=== PATIENT | female | born 1960 | race Caucasian/White ===

== ENCOUNTER 2019-03-06 07:38 | Day surgery (SDC) | payer BC, SELFPAY ==
--- NOTE | 2019-03-06 06:52 | COLE_ITS ---
Date of service: 03/06/19 Time of Service: 08:24 Colonoscopy Report Date of procedure: 03/06/19 Pre-op diagnosis general: Hx of colon polyps and family history Post-op diagnosis procedure note: other (Colorectal polyp, internal hemorrhoids and FHx of colon cancer) Procedure: Colonoscopy with polypectomy Surgeon: Carola Bryant Anesthesia proc note operative: other (General/ ASA 2/Dash Olivera, J CARLOS) Estimated blood loss (mL): 2 Pathology: other (ascending colon polyp) Complications: None Disposition: same day Indications: Mrs. Deras is a pleasant 4-year-old female who was seen in the office for follow-up colonoscopy. She has a history of polyps herself. No family history of colon cancer. Risks, benefits and complications have been reviewed. Complications include but are not limited to bleeding, pain, perf oration, missed small lesion/polyp, sore throat, aspiration and adverse reaction to the medications. Questions were entertained and answered to their satisfaction and they wished to proceed. No guarantees were given or implied. Prep: Miralax/Dulcolax Procedure Start Time: :24 Procedure End Time: 08:43 Retraction Time: 13 minutes Findings: One small sessile polyp in the ascending colon Grade 1 internal hemorrhoids Procedure Description: After informed consent was obtained the patient was taken to the procedure room and placed in a left decubitous position. Monitors were applied and a time out was done. The patients name, date of , procedure, allergies to medications and metal in their body was reviewed. The patient was then sedated. Once sedated and comfortable a rectal exam was done. External exam was normal. Internal exam revealed a normal sphincter tone and no palpable masses. The scope was then introduced and retro-flexed. Grade 1 internal hemorrhoids were identified. There were no masses or polyps on retroflexion. The scope was then advanced to the cecum without difficulty. The TI and appendiceal orifice were identified. The prep was adequate. The scope was then slowly retracted over 13 minutes back into the rectum. Polyps were removed with cold forceps in the ascending colon. The scope was removed and the patient was woken up and taken back to Same day surgery in stable condition. The patient tolerated the procedure well and there were no immediate complications. Follow up: The patient should follow up in 3-5 years unless they develop changes in bowel habits or other new gastrointestinal complaints.
--- NOTE | 2019-03-06 06:54 | W.PM.DSUDISC ---
Discharge Plan Disposition Patient Disposition: HOME Condition: Good Discharge Details Reason For Visit: Colonoscopy/ Hx of polyps Attending Provider: Carola Bryant Primary Care Provider: Pedro Pablo Escoto Home Meds and New Rx's Prescriptions: Discontinued polyethylene glycol 3350 17 gram powder in packet 255 g PO DAILY Qty: 15 RF: 0 Discharge Instructions Instructions: Colonoscopy (DC), Colorectal Polyps (DC), Hemorrhoids (DC) Additional Instructions: Findings: 1 small polyp internal hemorrhoids Follow up: 3-5 years Please call if you develop: fevers >101.5 Nausea or Vomiting Abdominal pain that is not transient DAY SURGERY UNIT POST ENDOSCOPY INSTRUCTIONS 1. Because there will be medication in your system for the next 24 hours, you may feel a little sleepy. Your coordination will be affected. Therefore: a. Do not drive or operate dangerous equipment for 24 hours. b. Do not drink alcohol beverages for 24 hours (not even beer). c. Plan to go home and rest for the day. 2. Generally there are no restrictions on your activity after a day or so has gone by, but you may feel a bit fatigued for a few days. 3 After you arrive home you may have a light meal and return to a normal diet as you can tolerate it without feeling sick to your stomach. 4. After surgery, you may feel pain or discomfort. This should be only transient, but if it persists please contact your doctor. 5. If there are any questions regarding the findings of your procedure, please feel free to contact your doctor. 6. If you are unable to contact your doctor with a problem, contact the hospital at [phone]. 7. Continue all your regular medications unless directed otherwise. I understand the above instructions and have no questions. Signature of Patient or Responsible Adult Escort Date/Time Name of Responsible Adult Escort Signature of Nurse Date/Time Activity:: Activity as Tolerated Diet:: As Tolerated Discharge Orders Discharge Orders: Discharge Order (Routine); Ordered 03/06/19 Ordered By: Carola Bryant DS: Diagnosis Discharge Diagnosis (1) Colonoscopy - IV Sedation: Status: None (2) Colorectal polyps: Status: Acute (3) Internal hemorrhoids: Status: Acute
[2019-03-06 07:47] VITALS: BP 95/65; PULSE 75; RESP 16; TEMP 36.5; O2SAT 100
[2019-03-06] MEDS: Lactated Ringers 1,000 ML 80 ML IV (08:23)
--- NOTE | 2019-03-06 08:33 | BOWEL_PTH ---
PATIENT: Effie Deras LOC: [facility] U#:[id number] AGE/SX: 58/F ROOM: RE03/06/[address]: Carola Bryant MD : 1960 BED: DIS: 03/06/2019 SPEC #: [id number] RECD: 03/06/19 11:53 STATUS: LUIS CARLOS REQ #: [id number] DAINA: 03/06/19 08:[address]: Carola Braynt DEPT: Surgical Specimen RECD BY: Katie Brown ENTERED: 03/06/19 11:54 SP TYPE: Bowel OTHR DR: Pedro Pablo Escoto Tissues: 1 - BIOPSY BOWEL Procedures: GROSS AND MICRO LEVEL 4 Comments: [id number]
[2019-03-06 09:45] VITALS: BP 96/58; PULSE 72; RESP 16; TEMP 36.3; O2SAT 97
== END 2019-03-06 09:55 | disposition home or self-care (01) ==
LOC: SUR 07:40
PROVIDERS: PCP Internal Medicine; Visit Provider Surgery
PROC: 0DJD8ZZ Inspection of Lower Intestinal Tract, Via Natural or Artificial Opening Endoscopic (ICD-10-PCS; CPT 45378; principal; 2019-03-06 09:30)
DX: Z12.11 Encounter for screening for malignant neoplasm of colon (principal); Z86.010 Personal history of colon polyps; Z80.0 Family history of malignant neoplasm of digestive organs; D12.2 Benign neoplasm of ascending colon; K64.0 First degree hemorrhoids
CPT/HCPCS: 45380; 88305

== ENCOUNTER 2021-05-13 15:39 | Outpatient (REF) | payer BC, SELFPAY ==
[2021-05-13 15:29] LABS: HCT 41.9 % (36.0-46.0); HGB 13.4 g/dL (11.2-15.7); MCH 29.6 pg (27.0-33.0); MCV 92.7 fL (80-95); MPV 10.6 fL (8.0-11.0); Platelet Count 267 10^3/uL (130-400); RBC 4.52 10^6/uL (3.93-5.22); RDW 12.7 % (11.7-14.6); RDW-SD 43.6 fL; WBC 6.68 10^3/uL (4.4-10.8)
[2021-05-13 16:13] LABS: Anion Gap 10.2 mmol/L (3-11); BUN 21 mg/dL (7-18); CO2 27.8 mmol/L (21.0-32.0); CREATININE 0.9 mg/dL (0.55-1.02); Calcium 9.3 mg/dL (8.5-10.1); Calculated LDL 150 mg/dL (<100); Chloride 104 mmol/L (98-107); Cholesterol 224 mg/dL (<200); Glucose 91 mg/dL (74-106); HDL Cholesterol 60 mg/dL (40-60); Potassium 4.6 mmol/L (3.5-5.1); Sodium 142 mmol/L (136-145); Triglyceride 74 mg/dL (<150)
[2021-05-14 11:12] LABS: Hepatitis C Ab w Rflx HCV PCR Negative (Negative)
[2021-05-14 12:43] LABS: HIV-1/2 Ag & Ab Screen Negative (Negative)
== END 2021-05-13 15:40 | disposition home or self-care (01) ==
LOC: NCHCN 15:39
PROVIDERS: PCP Internal Medicine; Visit Provider Nurse Practitioner Family
DX: Z00.00 Encounter for general adult medical examination without abnormal findings (principal); Z11.4 Encounter for screening for human immunodeficiency virus [HIV]; Z11.59 Encounter for screening for other viral diseases
CPT/HCPCS: 80048; 80061; 85027; 86803; 87389

== ENCOUNTER 2022-10-12 02:14 | Outpatient (CLI) | payer BC, SELFPAY ==
--- NOTE | 2022-10-12 | DI.MAMMO_ITS ---
Exam(s) US BREAST LT COMPLETE MG MAMMO DIAGNOSTIC UNI EXAM: MG MAMMO DIAGNOSTIC UNI-LEFT AND COMPLETE LEFT BREAST ULTRASOUND CLINICAL HISTORY: DIFFUSE CYSTIC MASTOPATHY OF LT BREAST, FAM HX. TECHNIQUE: Unilateral LEFT BREAST spot mammographic images were obtained with 3D tomosynthesis techn ique and utilizing computer aided detection (CAD). Also performed complete left breast ultrasound including all 4 quadrants, the retroareolar region, an d the left axilla. COMPARISON: Prior outside mammograms were reviewed. FINDINGS: DIAGNOSTIC LEFT BREAST MAMMOGRAM: The fibroglandular tissue pattern is very dense, this decreasing the sensitivity mammogram for findin g hidden underlying lesions. There are no obvious spiculated masses nor malignant-appearing microcalcification groups in the left breast. Few benign microcalcifications are noted. There is no significant architectural distortion or skin thickening-traction. COMPLETE LEFT BREAST ULTRASOUND: At the 1 o'clock position there is a 9 x 6 mm wider than taller finding which upon real-time multi pl aner imaging (both radial and anti radial cine sequences were performed) has more the appearance of a symmetric benign tissue than a fibroadenoma. There are no other focal findings in all 4 quadrants of the left breast. Scanning of the left axilla is negative for adenopathy. IMPRESSION: 1. Dense fibroglandular tissue of the left breast. No mammographic evidence of malignancy. 2. Finding at the 1 o'clock position left breast on ultrasound which is most probably asymmetric fibr oglandular tissue as opposed to a true nodule. 3. Appropriate follow-up is repeat left breast ultrasound in 3 months, this to ensure stability of fi nding described above at the 1 o'clock position. At that time I recommend that she undergo bilateral breast ultrasound, given the density of her fibroglandular tissue on mammography. Findings are recommendations were discussed by myself with the patient today. The patient was informed of the findings and follow-up recommendations prior to leaving the [facility] today. BI-RADS Category 3 - 3 month - Probably Benign Finding: Recommend follow-up ULTRASOUND in 3 months Breast Density - Category D - Extremely dense Breast density Category C or D implies that the patient has dense breast tissue. Dense breast tissue can make it harder to find cancer on a mammogram. Dense breast tissue is also associated with an incr eased risk of breast cancer. This information about the result of the mammogram report was provided to the patient to raise their awareness. Use this report when you speak with the patient about their risks for breast cancer, which includes their family history. At that time, you may recommend additional screening tests (Ultrasoun d or MRI) as these tests may add significant information. A negative radiographic report should not delay biopsy if a dominant or clinically suspicious mass is present. Up to ten percent of cancers are not identified on mammography. A negative report may reinforce clinical impression. Adenosis and dense breasts may obscure an underlying neoplasm. False positive reports average 6 to 10%. Patient will receive a letter notifying them of these results.
== END 2022-10-12 02:34 ==
LOC: DI 02:17
PROVIDERS: PCP Internal Medicine; Visit Provider Nurse Practitioner Women's Health
DX: Z12.31 Encounter for screening mammogram for malignant neoplasm of breast (principal); R92.2 Inconclusive mammogram
CPT/HCPCS: 76642; 77061; 77065; G0279

== ENCOUNTER → 2023-01-15 00:06 | Outpatient (CLI) | payer BC, SELFPAY ==
--- NOTE | 2023-01-15 | DI.US_ITS ---
Exam(s) MG MAMMO DIAGNOSTIC UNI US BREAST LT LIMITED EXAM: MG MAMMO DIAGNOSTIC UNI and U/S breast LT limited CLINICAL HISTORY: INCONCLUSIVE MAMMO R92.2 MASTOPATHY N60.12 FAM HX BREAST CANCER Z80.3. TECHNIQUE: Craniocaudal and mediolateral oblique Full Field Digital Mammography views of the left br east with Computer Aided Diagnosis followed by Tomosynthesis and left breast ultrasound. COMPARISON: Comparison is made with prior examinations. FINDINGS: Mammography/Tomosynthesis: Masses/Architectural Distortion: None seen. Microcalcifictions: No suspicious pleomorphic-type are seen. Skin Thickening/Nipple Retraction: None. Limited left breast US: Echotexture: The hypoechoic breast tissue at the 1 o'clock position of the left breast 2 cm from the nipple is unchanged. This has the appearance of asymmetric benign breast tissue but a fibroadenoma c annot be entirely excluded. Shadowing: No suspicious foci. Cyst: None. Solid lesions: None seen. Ductal dilation: None. IMPRESSION: 1. Stable appearance of the breast tissue at the 1 o'clock. 2. A six-month follow-up mammogram and ultrasound is requested for re-evaluation. 3. The findings were discussed with the patient on the date of the examination. BI-RADS Category 3 - 6 month - Probably Benign Finding: Recommend follow-up imaging in 6 months Breast Density - Category D - Extremely dense Breast density Category C or D implies that the patient has dense breast tissue. Dense breast tissue can make it harder to find cancer on a mammogram. Dense breast tissue is also associated with an incr eased risk of breast cancer. This information about the result of the mammogram report was provided to the patient to raise their awareness. Use this report when you speak with the patient about their risks for breast cancer, which includes their family history. At that time, you may recommend additional screening tests (Ultrasoun d or MRI) as these tests may add significant information. A negative radiographic report should not delay biopsy if a dominant or clinically suspicious mass is present. Up to ten percent of cancers are not identified on mammography. A negative report may reinforce clinical impression. Adenosis and dense breasts may obscure an underlying neoplasm. False positive reports average 6 to 10%. Patient will receive a letter notifying them of these results.
== END ==
PROVIDERS: PCP Internal Medicine; Visit Provider Nurse Practitioner Women's Health
DX: Z12.31 Encounter for screening mammogram for malignant neoplasm of breast (principal); N60.12 Diffuse cystic mastopathy of left breast; R92.2 Inconclusive mammogram; Z80.3 Family history of malignant neoplasm of breast
CPT/HCPCS: 76642; 77061; 77065; G0279

== ENCOUNTER 2023-04-13 08:03 | Outpatient (REF) | payer BC, SELFPAY ==
--- OUTSIDE RECORDS SUMMARY | 2023-04-13 08:06 | XMS_ITS | Continuity of Care Document ---
Author Name Unknown Organization [facility] Address [address] [place] [address] Care Team Providers Care Due Diligence Coordinator Name Role Phone YEISON VANEGAS Primary Care Physician Encounter [facility] NBR [id number] Date(s): 07/22/22 - 07/22/22 [facility] [address] [place] [address]- [place] Encounter Diagnosis Encounter for screening mammogram for malignant neoplasm of breast(Final) - Mammographic calcification found on diagnostic imaging of breast(Final) - Discharge Disposition: Home or Self Care Attending Physician: YEISON VANEGAS Admitting Physician: YEISON VANEGAS Referring Physician: YEISON VANEGAS Results Radiology Reports * Exam Date Time Procedure Performing Provider Status 07/22/22 6:38 AM MG Mammo Screening Bilateral DomainUse r, Generated; Auth (Verified) Notes: (MG Mammo Screening Bilateral) Reason For Exam: SCREENING MG Mammo Screening Bilateral EXAM DESCRIPTION: MG Mammo Screening Bilateral 07/22/2022 INDICATION: SCREENING COMPARISON: Prior studies most recently dated 07/22/2021 and 07/09/2020 BREAST DENSITY: The breasts are heterogeneously dense which may obscure small masses. FINDINGS: MLO and CC views were performed with digital breast tomosynthesis. Images were reviewed using computer aided detection. No asymmetry, architectural distortion or suspicious grouping of calcifications to suggest malignancy in either breast. Scattered benign-type calcifications bilaterally which were seen previously. ASSESSMENT: No mammographic evidence of malignancy. Benign findings. BI-RADS category 2. RECOMMENDATION: Screening mammography in 1 year JOB #: [id number] Final Signed by: Matthias Marin MD Signed (Electronic Signature): 07/22/2022 8:53 am MG Breast - bilateral Screening * Matthias Marin MD: VERIFY, VERIFY Event Display: Report EXAM DESCRIPTION: MG Mammo Screening Bilateral 07/22/2022 INDICATION: SCREENING COMPARISON: Prior studies most recently dated 07/22/2021 and 07/09/2020 BREAST DENSITY: The breasts are heterogeneously dense which may obscure small masses. FINDINGS: MLO and CC views were performed with digital breast tomosynthesis. Images were reviewed using computer aided detection. No asymmetry, architectural distortion or suspicious grouping of calcifications to suggest malignancy in either breast. Scattered benign-type calcifications bilaterally which were seen previously. ASSESSMENT: No mammographic evidence of malignancy. Benign findings. BI-RADS category 2. RECOMMENDATION: Screening mammography in 1 year JOB #: [id number] Final Signed by: Matthias Marin MD Signed (Electronic Signature): 07/22/2022 8:53 am Patient Care team information Care Team Personnel Name: YEISON VANEGAS Position: No Access Member Role: Primary Care Physician Address: Address: [address] [address]
--- OUTSIDE RECORDS SUMMARY | 2023-04-13 08:06 | XMS_ITS | CCD ---
Author Name Unknown Address [address] [place] [address] [id number] Organization Unknown Address [address] [place] [address] [id number] Care Team Providers Care Sizing Sponger Name Role Phone SHIRA MOONEY Attending Physician [phone] Vital Signs Unknown or Not Available. Allergies Unknown or Not Available. Procedures Unknown or Not Available. History of Immunizations Unknown or Not Available. Problems Unknown or Not Available. Results Unknown or Not Available. Active Medications Unknown or Not Available. Medications Administered During Visit Unknown or Not Available. Encounters Encounter Diagnosis Diagnosis Code Start Date Active immunization [id number] 02/16/2023 Social History Smoking Status Code Start Date End Date Unknown if ever smoked [id number] Patient Decision Aids Unknown or Not Available. Discharge Instructions You were admitted to [facility] on 02/16/2023 11:45 with a principal diagnosis of Encounter for immunization You were discharged from [facility] on 02/16/2023 11:45 Should you have any questions prior to discharge, please contact a member of your healthcare team. If you have left the hospital and have any questions, please contact your primary care physician. Chief Complaint and Reason For Visit Unknown or Not Available. Function Status Unknown or Not Available. Plan of Care Unknown or Not Available. Referral/Transition of Care Unknown or Not Available.
--- OUTSIDE RECORDS SUMMARY | 2023-04-13 08:06 | XMS_ITS | Patient Health Record ---
Author Name Unknown [facility] Address [address] [place] [address] Care Team Providers Care Armor Reconnaissance Vehicle Driver Name Role Phone FRANDY FREDERICK MD Primary Care Provider Unavail able Edy Abdi Unavailable [phone] ALLERGIES Allergen (clinical drug ingredient) Drug/Non Drug Allergy documented on EMR Reaction Allergy Type Onset Date Status acetaminophen tylenol (uncoded) cold symptoms Allergy Active REASON FOR REFERRAL No Information MEDICATIONS Medication SIG (Take, Route, Frequency, Duration) Notes Start Date End Date Status HAIR, SKIN & NAILS 5 mg 1 cap(s) orally once a day STOP*please review for potential _update for e-prescription and drug interaction check* Not-Taking SOCIAL HISTORY Tobacco Use: Social History Observation Description Date Details (start date - stop date) Never Smoker NA - NA Sex Assigned At : Social History Observation Description Sex Assigned At Unknown SMOKING Question Answer Notes Are you a: nonsmoker DRUG SCREENING Question Answer Notes Have you used drugs other th an those for medical reasons in the past 12 months? No PROBLEMS Problem Type ICD Code Onset Dates Problem Status W/U Status Risk SNOMED Code Notes Problem ROUTINE QUILL LAYER EXAMINATION (V72.31) Active confirmed Routine gynecologic examination done (14970733288668 ) Problem BREAST MASS (611.72) Active confirmed Breast mass (44129694) Problem Atrophic vaginitis (N95.2) Active confirmed [id number] PLAN OF TREATMENT Future Test Test Name Order Date HEMOGLOBIN A1C 06/28/2018 LIPID W/ CALCULATED LDL 06/28/2018 TSH 06/28/2018 Insurance Providers Payer Name Payer Address Payer Phone Subscriber Number Group Number Insured Name Patient Relationship to Insured Coverage Start Date Coverage End Date [employer] [place] [address] [place], [place] [id number] [phone] [id number] Self - patient is the insured [place] [address] [address] Self - patient is the insured MEDICAL (GENERAL) HISTORY Medical History History ICD Code mother diagnosised with breast cancer 52 yrs old. Surgical History Surgery Date(Month/Year) breast sugery- dr. Bailey 10/2007 breast surgery- Dr. Mahoney in [place]. 10/2008 T&A colonoscopy 02/21/2010 breast cyst aspiration colonoscopy with flat polyp, repeat in [place] yr.Dr. Wyman. 08/08/2012 Colonoscopy at [facility] 2013, 2018 Hospitalization History Reason Date(Month/Year) childbirth
[2023-04-13 15:23] LABS: HCT 40.7 % (36.0-46.0); HGB 13.3 g/dL (11.2-15.7); MCH 29.6 pg (27.0-33.0); MCHC 32.7 % (32.0-36.0); MCV 90 fL (80-95); MPV 10.3 fL (8.0-11.0); Platelet Count 278 10^3/uL (130-400); RDW 12.9 % (11.7-14.6); RDW-SD 42.2 fL; WBC 5.11 10^3/uL (4.4-10.8)
[2023-04-13 15:42] LABS: ALT 22 U/L (14-59); AST 17 U/L (15-37); Alkaline Phosphatase 118 U/L (46-116); Anion Gap 8.5 mmol/L (3-11); BUN 23 mg/dL (7-18); Bilirubin, Total 0.5 mg/dL (0.2-1.0); CO2 28.5 mmol/L (21.0-32.0); CREATININE 0.9 mg/dL (0.55-1.02); Calcium 9.3 mg/dL (8.5-10.1); Calculated LDL 137 mg/dL (<100); Chloride 106 mmol/L (98-107); Cholesterol 208 mg/dL (<200); Estimated GFR 70.95 (mL/min/1.73m2); Glucose 95 mg/dL (74-106); HDL Cholesterol 57 mg/dL (40-60); Potassium 4.5 mmol/L (3.5-5.1); Sodium 143 mmol/L (136-145); Total Protein 6.9 g/dL (6.4-8.2); Triglyceride 71 mg/dL (<150)
== END 2023-04-13 08:04 | disposition home or self-care (01) ==
LOC: NCHCN 08:03
PROVIDERS: PCP Internal Medicine; Visit Provider Nurse Practitioner Family
DX: Z00.00 Encounter for general adult medical examination without abnormal findings (principal); Z13.220 Encounter for screening for lipoid disorders; Z13.0 Encounter for screening for diseases of the blood and blood-forming organs and certain disorders involving the immune mechanism; Z13.228 Encounter for screening for other metabolic disorders
CPT/HCPCS: 80053; 80061; 85027

== ENCOUNTER → 2023-07-21 02:49 | Outpatient (CLI) | payer BC, SELFPAY ==
--- NOTE | 2023-07-21 | DI.US_ITS ---
Exam(s) MG MAMMO DIAGNOSTIC BI US BREAST LT LIMITED EXAM: MG MAMMO DIAGNOSTIC BI, left breast ultrasound CLINICAL HISTORY: DIAGNOSTIC, LT BREAST ASYMMETRIC TISSUE. COMPARISON: MG MG MAMMOGRAPHY BILATERAL SCREENING from 07/09/2020 MG MG MAMMOGRAPHY BILATERAL SCREENING from 07/22/2021 MG MG MAMMOGRAPHY BILATERAL SCREENING from 07/22/2022 MG MG MAMMO DIAGNOSTIC UNI from 10/12/2022 US US BREAST LT COMPLETE from 10/12/2022 MG MG MAMMO DIAGNOSTIC UNI from 01/15/2023 US US BREAST LT LIMITED from 01/15/2023 US US BREAST LT LIMITED from 07/21/2023 TECHNIQUE: Craniocaudal and mediolateral oblique Full Field Digital Mammography views of both breast s with Computer Aided Diagnosis followed by Tomosynthesis and left breast ultrasound. FINDINGS: Mammography/Tomosynthesis: Masses/Architectural Distortion: None seen. Microcalcifications: No suspicious pleomorphic-type are seen. Skin Thickening/Nipple Retraction: None. Left breast US: Echotexture: Normal appearance of the glandular tissue. Shadowing: No suspicious foci. Cyst: None. Solid lesions: Stable size and appearance of previously noted circumscribed hypoechoic ovoid lesion m easuring 6 x 9 by 12 millimeters. Ductal dilation: None. IMPRESSION: 1. No evidence of malignancy is noted. 2. Unless there is more urgent need, follow-up screening mammography is recommended, as per [employer] guidelines. BI-RADS Category 2 - Benign Findings Breast Density - Category D - Extremely dense Breast density category C or D implies that the patient has dense breast tissue. Dense breast tissue is very common and is not abnormal but dense breast tissue can make it harder to find cancer on a ma mmogram. Also, dense breast tissue may increase their breast cancer risk. This information about the result of the mammogram report was provided to the patient to raise their awareness. Use this report when you speak with the patient about their risks for breast cancer, which includes their family hist ory. At that time, you may recommend for more screening tests (Ultrasound or MRI) as they might be us eful based on their risk. A negative radiographic report should not delay biopsy if a dominant or clinically suspicious mass is present. Up to ten percent of cancers are not identified on mammography. A negative report may reinforce clinical impression. Adenosis and dense breasts may obscure an underlying neoplasm. False positive reports average 6 to 10%. Patient will receive a letter notifying them of these results.
== END ==
PROVIDERS: PCP Internal Medicine; Visit Provider Nurse Practitioner Women's Health
DX: R92.8 Other abnormal and inconclusive findings on diagnostic imaging of breast (principal); Z12.31 Encounter for screening mammogram for malignant neoplasm of breast
CPT/HCPCS: 76642; 77062; 77066; G0279

== ENCOUNTER 2024-03-10 08:04 | Day surgery (SDC) | payer BC, SELFPAY ==
--- NOTE | 2024-03-09 15:37 | COLE_ITS ---
Date of service: 03/10/24 Time of Service: 10:37 Colonoscopy Report Date of procedure: 03/10/24 Pre-op diagnosis general: Mother had CRC Post-op diagnosis procedure note: other (Grade 1 internal hemorrhoid) Surgeon: Celia Rubio Anesthesia Type: General:No Airway Estimated blood loss (mL): 0 Pathology: none sent Complications: None Disposition: same day Prep: Miralax/Dulcolax Retraction Time: 8 Procedure Description: After informed consent was obtained, explaining risks of the procedure, including but not limits to: bleeding, infections, complications of anesthesia, perforations (which may require antibiotics and /or surgery and stay in the hospital), and abdominal pain/cramping. The patient was taken to the procedure room and placed in a left decubitous position. Monitors were applied and a time out was done. The patients name, date of , procedure, allergies to medications and metal in their body was reviewed. The patient was then sedated. Once sedated and comfortable a rectal exam was done. External exam was normal. Internal exam revealed a normal sphincter tone and no palpable masses. The previously lubricated Olympus scope was then introduced (see RN notes for scope number) and retrofelexed. Grade 1 internal hemorrhoids x 3 columns were identified. The scope was then advanced to the cecum without difficulty. The TI and appendiceal orifice were identified. The scope was then slowly retracted over 8 minutes back into the rectum. Polyps: None diverticula: None the mucosa is pink and healthy w/ a normal vascular pattern. The scope was removed, and the patient was woken up and taken back to Same day surgery in stable condition. The patient tolerated the procedure well and there were no immediate complications. Follow up: The patient should follow up in 5 years, unless they develop changes in bowel habits or other new gastrointestinal complaints. [place] Bowel Prep [place] Bowel Prep Right Colon: 3 Left Colon: 3 Transverse Colon: 3 Total Score: 9
--- NOTE | 2024-03-09 15:38 | PDOC.DSDIS_ITS ---
Date of service: 03/10/24 Time of Service: 10:39 Discharge Plan Disposition Patient Disposition: Home Condition: Good Discharge Details Reason For Visit: colon scope Attending Provider: Celia Rubio Primary Care Provider: Pedro Pablo Escoto Home Meds and New Rx's Prescriptions: Discontinued bisacodyl [Dulcolax (bisacodyl)] 5 mg tablet,delayed release (DR/EC) 5 mg PO ONCE Qty: 4 0RF Rx Instructions: Take per colonoscopy instructions provided by ordering providers office polyethylene glycol 3350 17 gram/dose powder 17 g PO ONCE Qty: 238 0RF Rx Instructions: Take per colonoscopy instructions provided by ordering providers office Discharge Instructions Additional Instructions: DSU Colonoscopy Post- Op Instructions Instructions for Everyone who is given Anesthesia: For your safety, please do the following for the next twenty-four (24) hours: *Do Not operate a motor vehicle (car, truck, motorcycle, etc.) *Do Not drink alcoholic beverages or use any recreational drugs for the first 24 hours or while taking pain medications. The medications in your body may have a reaction that can be dangerous. *Do Not make any important decisions or sign any important papers. Findings: Normal Follow up: Repeat in 5 years time Of course, you should continue to have a yearly physical exam including a rectal exam. If you should ever notice any pain or difficulty having a bowel movement, blood in the stool, unexplained weight loss, or change in your bowel habits, please contact your health provider 1. No lifting over 20 pounds or strenuous activity for the first 24 hours after your procedure. After 24 hours there are no restrictions on your activity but you may feel fatigued for a few days. 2. After you arrive home you may have a light meal and return to your normal diet as you can tolerate it without feeling sick to your stomach. 3. You may have a bloated, gaseous feeling in your belly (abdomen) after a colonoscopy. Passing gas and belching will help. Walking or lying down on your left side with your knees flexed may relieve the discomfort. Call the office at [phone] (Office) or [phone] (Hospital) right away if you notice any of the following: a.Vomiting of blood or ?coffee ground stools?. b.Rectal bleeding 1Tbsp, blood clots or continuous bleeding. c.Severe belly (abdominal) pain. d.A hard distended belly (abdomen) and an inability to pass gas. 4. Please don?t expect to have a normal BM (bowel movement) for 2-3 days after your procedure. 5. If there are questions regarding the findings of your procedure, please contact your doctor 6. If you are unable to contact your doctor with a problem, contact the hospital at [phone]. 7. Continue all your regular medications unless directed otherwise. I understand the above instructions and have no questions. Signature of Patient or Adult Escort Name of Responsible Adult Escort Signature of Nurse Date/Time Stand Alone Forms: Anesthesia Discharge Inst., Leonardo Modi (DSU) Activity:: see above Diet:: see baove Discharge Orders Discharge Orders: Discharge Order (Routine); Ordered 03/10/24 Ordered By: Celia Rubio DS: Diagnosis Discharge Diagnosis (1) Constipation: Status: Acute (2) Internal hemorrhoids: Status: Acute (3) Family history of malignant neoplasm of colon: Status: Acute Asessment and Plan: The patient is seen and examined after their colonoscopy.? The patient has been able to pass gas.? They are not having abdominal pain.? They have been able to tolerate liquids and a snack.? They do not have any nausea or vomiting.? They are not having any chest pain or shortness of breath.??? They are not having any rectal bleeding. Their vital signs have been stable-see nursing notes. We discussed findings during their colonoscopy, and any biopsies that were done/polyps that were removed. The patient will be sent a letter with any biopsy results, and when to repeat the colonoscopy.-see discharge instructions. Patient was given explicit instructions to follow-up regarding colonoscopy-refer to discharge instructions.? We reviewed resumption of medications. Patient verbalized understanding and discharged in stable and satisfactory condition- See nursing notes. (4) h/o sessile serrated Adenoma--colon:
--- NOTE | 2024-03-09 17:03 | W.ANESPRE ---
General Info Date of Service Date Performed: 03/10/24 Height: 5 ft 4 in Weight: 58.967 kg Body Mass Index (BMI): 22.3 Surgical Procedure: Operation Date: 03/10/24 10:05 Proposed Procedure Side Surgeon paramjit Rubio DO Meds Allergies and Home Medications Allergies Allergy/AdvReac Type Severity Reaction Status Date / Time acetaminophen (From Tylenol) Allergy UPPER Verified 03/10/24 08:23 RESPIRATORY SYMPTOMS Current Visit Medications: Current Medications Generic Name Dose Route Start Last Admin Trade Name Freq PRN Reason Stop Dose Admin Hyoscyamine Sulfate 0.125 mg 03/10/24 15:16 Hyoscyamine 0.125 Mg Sl/Oral/Chew SL 04/09/24 15:15 DIRECTED PRN IV Miscellaneous Supplies 1 each 03/10/24 06:00 Iv Access IV 04/08/24 23:59 DIRECTED CINDY Ondansetron HCl 4 mg 03/10/24 15:16 Ondansetron 4 Mg/2 Ml Vial IVP 04/09/24 15:15 Q4H PRN PRN Nausea / Vomiting Sodium Chloride 0 ml 03/10/24 06:00 Normal Saline Flush 10 Ml Syr IV 04/08/24 23:59 PRN PRN Sodium Chloride 0 ml 03/10/24 06:00 Normal Saline 10 Ml Vial IJ 04/08/24 23:59 DIRECTED PRN Sterile Water 0 ml 03/10/24 06:00 Water,Injection,Sterile 10 Ml Vial IJ 04/08/24 23:59 DIRECTED PRN PFSH Active Problems Active Problems: Problem Status Onset Code Family history of malignant neoplasm of colon Acute Z80.0 Screening for colon cancer Acute Z12.11 Internal hemorrhoids Acute K64.8 Colorectal polyps Acute K63.5 Constipation Acute K59.00 Medical History Medical History h/o sessile serrated Adenoma--colon Breast lump Surgical History Surgical History History of colonoscopy (~2019) Tonsillectomy and adenoidectomy PERIODONTAL GRAFT Breast, Cyst Aspiration Biopsy of breast 2007 and 2008 Tobacco Smoking/Tobacco Use Status: Never Alcohol Alcohol Intake: current Alcohol intake frequency: a few times a month Substance Use Substance use: Never Substance use type: does not use Vital Signs and Lab Results Vital Signs Most Recent Vital Signs in EMR: Temp Pulse Resp BP Pulse Ox 36.3 C L 58 L 17 108/65 100 03/10/24 08:15 03/10/24 08:15 03/10/24 08:15 03/10/24 08:15 03/10/24 08:15 Lab Results Blood Type / Crossmatch: No Data to Display Complete Blood Count: No Data to Display Complete Metabolic Panel: No Data to Display Liver Function Panel: No Data to Display Coagulation Panel: No Data to Display Cardiac Panel: No Data to Display Arterial Blood Gas: No Data to Display Venous Blood Gas: No Data to Display Pancreas Panel: No Data to Display Thyroid Panel: No Data to Display Infectious Disease: No Data to Display Blood Cultures: No Data to Display Toxicology Panel: No Data to Display Anesthesia Assessment and Plan Anesthesia History Personal History: No History of Anesthesia Complications Family History: No Family History of Anesthesia Complications Exercise Tolerance Exercise Tolerance: Metabolic Equivalents>4 Cardiac & Pulmonary Exam Cardiac Exam: Normal S1/S2 Heart Sounds Pulmonary Exam: Clear Bilateral Breath Sounds Implantable Cardiac Device Does patient have a Pacemaker or an ICD?: No Airway Exam Known Difficult Airway: No Mallampati Class: 3 Mouth Opening: Narrow (< 3cm) Thyromental Distance: Less than 3 cm Neck Range of Motion: Full ROM Neck Circumference: Normal Teeth Condition: Normal Dentition (prominent. ) ASA Classification ASA Score: ASA 2 Emergency Case?: No NPO Status NPO Status: NPO Clears >2 hours, Solids >8 hours Anesthesia Plan Resuscitation Status: Full Code Anesthesia Technique: General Anesthesia Airway Planned: Natural Airway Monitors Used: Standard Monitors Preoperative Comments:: 63 yo female for colo. Sig PMHx: never smoker, occ EtOH. denies major Previous Anes: - colo, prop, natural airway, no issues.
[2024-03-10 08:15] VITALS: BP 108/65; PULSE 58; RESP 17; TEMP 36.3; O2SAT 100
[2024-03-10] MEDS: Normal Saline Flush 10 ML SYR IV (08:54)
[2024-03-10 09:00] VITALS: BMI 22.3
[2024-03-10 10:26] VITALS: BP 105/61; PULSE 54; RESP 14; TEMP 35.9; O2SAT 99
--- NOTE | 2024-03-10 10:37 | W.ANESPOSTOP ---
Postoperative Evaluation Date, Time and Location Date Performed: 03/10/24 Time Performed: 10:37 Patient Location: Day Surgery Unit Vital Signs Most Recent Imported Vital Signs: Most Recent Vital Signs Temp Pulse Resp BP Pulse Ox 35.9 C L 54 L 14 105/61 99 03/10/24 10:26 03/10/24 10:26 03/10/24 10:26 03/10/24 10:26 03/10/24 10:26 Pain Score Most Recent Pain Score: Most Recent Pain Score Pain Level 0 03/10/24 10:26 Assessment Mental Status: Awake (Alert & Oriented to Patient Baseline) Airway and Respiratory Function: Patent airway with normal (patient baseline) respiratory exam Cardiovascular Function: Hemodynamically Stable Hydration Status: Adequately Hydrated Nausea & Vomiting: No Nausea or Vomiting Pain: Pt. Denies Any Pain Peripheral Nerve Block: Patient did not receive a nerve block
[2024-03-10 10:58] VITALS: BP 119/66; PULSE 59; RESP 16; TEMP 36.2; O2SAT 100
== END 2024-03-10 11:15 | disposition home or self-care (01) ==
LOC: SUR 08:05
PROVIDERS: PCP Internal Medicine; Visit Provider Surgery
PROC: 0DJD8ZZ Inspection of Lower Intestinal Tract, Via Natural or Artificial Opening Endoscopic (ICD-10-PCS; CPT 45378; principal; 2024-03-10 10:00)
DX: K64.0 First degree hemorrhoids; Z80.0 Family history of malignant neoplasm of digestive organs; Z12.11 Encounter for screening for malignant neoplasm of colon; D12.2 Benign neoplasm of ascending colon
CPT/HCPCS: 45378; J2704

== ENCOUNTER 2024-05-10 15:02 | Outpatient (REF) | payer BC, SELFPAY ==
--- OUTSIDE RECORDS SUMMARY | 2024-05-10 15:04 | XMS_ITS ---
Author Organization Unknown Address [address] [place] [phone] Phone Care Team Providers Care Counselor Aid Name Role Phone JESICA Finley Attending Unavailable Social History Type Status Start Date End Date Code Code Syst em Smoking History Unknown if ever smoked [id number] Sex Female Hospital Discharge Instructions Should you have any questions prior to discharge, please contact a member of your healthcare team. If you have left the hospital and have any questions, please contact your primary care physician. Reason For Referral No Data Found Plan of Treatment No Data Found Encounters Encounter Diagnosis Start Date Code Code Sys tem Active immunization 02/16/2023 [id number] SNOMED-C T Personal Care Team Section Performer Name Performer Role Active Date Inactive Da te
--- OUTSIDE RECORDS SUMMARY | 2024-05-10 15:05 | XMS_ITS | Encounter Summary ---
[place] [address] Care Team Providers Care Background Investigator Name Role Phone Becky Carrizales MD Primary Care Provider [phone] Encounter Details Date Type Department Care Team ([facility] st Contact Info) Description 10/16/[place] [id number] Helen Zuniga MD [address] [place] [address] Social History Tobacco Use Types Packs/Day Years Used Date Smoking Tobacco: Never Assessed Sex and Gender Information Value Date Recorded Sex Assigned at Not on file Gender Identity Not on file Sexual Orientation Not on file documented as of this encounter Plan of Treatment Not on file documented as of this encounter Procedures Procedure Name Priority Date/Time Associated Diagnosis Comments CATERING SERVER CYTOLOGY FINAL REPORT Routine 10/16/2014 12:00 PM EDT documented in this encounter Results * Cigarette Book Maker Cytology Final Report (10/16/2014 12:00 PM EDT) Cigarette Book Maker Cytology Final Report ? [facility] ? Provider: ?? HELEN ZUNIGA ? Pt. Name: ?? CAMILO EFFIE Sai ? Acc #: ?[id number] ?Pt. ? Col Date: ?? 10/16/2014 ? /Sex: ?1960,(54 ? years),Female ? Rec Date: ?? 10/17/2014 ? LOC: ?[facility] ? CYTOPATHOLOGY: ??CATERING SERVER ? ---Adequacy--- ? Specimen submitted is satisfactory. ? Endocervical component present. ? ---Cytopathologic Diagnosis--- ? NORMAL ? Negative for Intraepithelial Lesion or Malignancy (NILM). ? 10/31/14 ?? Screened by: ??SLA ? 10/31/14 ?? Verified by: ??Darren CT(ASCP), Светлана Mendoza - ? Plate Filler ? ---Clinical Information--- ? HPV Option: ? Reflex HPV ? Preparation: ?Liquid Based Pap ? Specimen Source: ?Cervical Endocervical LBP ? LMP: ?DISH NETWORK INSTALLER ? Hormones?: ?No ? Hysterectomy?: ?No ?: ?No ?: ?No ? I.U.D.?: ?No ? Pelvic Radiation: ? No ? Prior CATERING SERVER Therapy?: ? No ? Hist Abnl Pap/Biopsy?: ??No ? Hist of HPV Vaccine?: ?? (not provided) ? Hist of Smoking?: ? (not provided) ? Hist of CHRISTOPHER exposure?: ??(not provided) ? Clinical Data, Significant Therapy and Clinical Impression: ? Referring Identifier: ??[id number] ? This Pap Test has been evaluated with the assistance of the ThinPrep Pap ? Test Imaging System. ? Note: ? The Pap test is a screening test for cervical cancer with an inherent ? false-negative rate dependent upon several variables. ??For further ? information please contact the [facility] Laboratory. ? Reference: ??Khloe GARCIA. ??Master Fire Control Technician of Pap Smear Results. ??In: ? Halle BS, Ernesto HH, ed. ??The Pap Smear. ??[place]: ??El, 2002: ? 71-77. LAMONTE LEI 10/16/2014 12:0 0 PM EDT Narrative LAMONTE LEI - 10/31/2014 1:38 PM EDT Spec In Lab / [facility] Helen Zuniga MD PATHOLOGY/CYTOLOGY O RDERABLES Performing Organization Address City/State/[facility] Co de Phone Number LAMONTE LEI documented in this encounter Visit Diagnoses Not on filedocumented in this encounter Care Teams Background Investigator Relationship Specialty Start Date End Date Becky Carrizales MD [address] [place] [address] PCP - General 03/25/10 11/10/23 documented as of this encounter
--- OUTSIDE RECORDS SUMMARY | 2024-05-10 15:05 | XMS_ITS | Encounter Summary ---
Author Organization [facility] Address [address] [place] [address] Care Team Providers Care Continuous Improvement Black Belt Name Role Phone Dion Olvera MD Primary Care Provider [phone] Encounter Details Date Type Department Care Team (Latest Contact Info) Description 02/18/2018 12:12 EDT - 02/18/2018 23:59 EDT Hospital Encounter [address] [address] Unknown, Provider, Discharge Disposition: Home or Self Care Social History Tobacco Use Types Packs/Day Years Used Date Smoking Tobacco: Never Assessed Comments Unknown Sex and Gender Information Value Date Recorded Sex Assigned at Not on file Legal Sex Female 18:42 EST Gender Identity Not on file Sexual Orientation Not on file documented as of this encounter Discharge Disposition Disposition Code Departure Means Destination Home or Self Nursing Home documented in this encounter Plan of Treatment Not on file documented as of this encounter Visit Diagnoses Not on filedocumented in this encounter Care Teams Continuous Improvement Black Belt Relationship Specialty Start Date End Date Dion Olvera MD [address] [place] [address] PCP - General 08/09/12 03/06/19 documented as of this encounter
--- OUTSIDE RECORDS SUMMARY | 2024-05-10 15:05 | XMS_ITS | Encounter Summary ---
Author Organization [facility] Address [address] [place] [address] Care Team Providers Care Relations Liaison Name Role Phone Dion Olvera MD Primary Care Provider [phone] Encounter Details Date Type Department Care Team (Late st Contact Info) Description 03/06/2019 Results Only [facility] [phone] Thalia Vazquez MD Pending sale to [facility] [address] Social History Tobacco Use Types Packs/Day Years [...] Procedure Name Priority Date/Time Associated Diagnosis Comments SURGICAL PATHOLOGY Routine 03/06/2019 15 :49 EST documented in this encounter Results * SURGICAL PATHOLOGY (03/06/2019 15:49 EST) Pathology Report: SURGICAL PATHOLOGY REPORT Reports generated via electronic interface contain original data; however they are lacking the format of the original report. Caution should be taken when reading/interpret ing unformatted reports. Name: ? SAMUEL PAGEBETH ? Accession #: ? [id number] ? : ? 1960 (Age: 58) ??F ? Collect Date: ? 03/06/2019 ? Location: ? [facility] ? Receive Date: ? 03/06/2019 ? Provider: THALIA VAZQUEZ MD Copy to: FRANDY FREDERICK MD ? Final Pathologic Diagnosis: COLON, ASCENDING, POLYP, BIOPSY: - Tubular adenoma. Document reviewed and electronically signed by: NOE MADRID MD Report ??Date: 03/08/2019 10:24 By the signature above, the attending physician certifies that he/she has personally conducted a gross and/or microscopic examination of the described specimens and rendered or confirmed the above diagnosis. Specimen(s) Received: Ascending colon polyp Clinical History: History of sessile serrated adenomas, family hx of colon cancer Gross Description: ? Received in formalin labelled with proper patient identification (initials F, E) and ascending colon polyp is a single fragment of dumont tissue (0.2 x 0.2 x 0.2 cm). The specimen is submitted entirely in 1. CHARLENE Meeks (ASCP) 03/06/2019 4:01 PM End of Report [facility] 03/06/2019 15:4 9 EST 03/06/2019 15:49 EST us Thalia Vazquez MD PATHOLOGY ORDERABLES Fin al Result [facility] [address] [place] [address] documented in this encounter Visit Diagnoses Not on filedocumented in this encounter Care Teams Relations Liaison Relationship Specialty Start Date End Date Dion Olvera MD [address] [place] [address] PCP - General 08/09/12 03/06/19 documented as of this encounter
--- OUTSIDE RECORDS SUMMARY | 2024-05-10 15:05 | XMS_ITS | Encounter Summary ---
Author Organization [facility] Address [address] [place] [address] Care Team Providers Care Diamond Sawer Name Role Phone Unavailable Primary Care Provider Unavailabl e Encounter Details Date Type Department Care Team (Late st Contact Info) Description 02/27/2009 Orders Only [facility] [address] [address] [place] [address] [place] [address] Social History Tobacco Use Types Packs/Day [...] Date/Time Associated Diagnosis Comments SURGICAL PATHOLOGY Routine 02/27/2009 0:00 EDT documented in this encounter Results * SURGICAL PATHOLOGY (02/27/2009 0:00 EDT) Pathology Report: SURGICAL PATHOLOGY REPORT ? Reports generated via electronic interface contain original data; ? however they are lacking the format of the original report. ? Caution should be taken when reading/interpreti ng unformatted reports. ? Name: ? CAMILO, EFFIE ? Accession #: ? [id number] ? : ? 1960 (Age: 48) ??F ? Collect Date: ? 02/27/2009 ? Location: ? [facility] ? Receive Date: ? 02/27/2009 ? Provider: DION OLVERA MD ? Copy to: SUSY CHANG ? Final Pathologic Diagnosis: ? A. ?Colon, cecum, polyp, biopsies: ? 1. ?Sessile serrated adenoma. ? B. ?Colon, ascending, polyp, biopsies: ? 1. ?Fragments of hyperplastic polyp. ? Document reviewed and electronically signed by: ? Chino Pan, MD ? Report ??Date: 03/01/2009 15:08 ? By the signature above, the attending physician certifies that he/she has ? personally conducted a gross and/or microscopic examination of the described ? specimens and rendered or confirmed the above diagnosis. ? Specimen(s) Received: ? A. ? cecal polyp (#1) ? B. ? polyp ascending colon (#2) ? Clinical History: ? F/H colon cancer; A. ? flat adenoma; note that Indigo [place] was instilled in the colon ? Gross Description: ? Received in Arslan's fixative labelled Effie Deras and #1 - ? ?? cecal polyp are two small biopsies and a larger polypoid structure. ??The two ?? small biopsies measure 0.2 x 0.2 x 0.1 cm each and are submitted intact as (A1). The larger polypoid structure measures 1.4 x 0.7 x 0.6 cm. ??The resection ? margin is inked black and the specimen is serially sectioned and submitted ? entirely as (A2) and (A3). ? Received in Paulinaandbrian's fixative labelled Effie Deras and #2 - ? polyp ascending colon are two biopsies measuring 0.3 x 0.2 x 0.2 cm and 0.5 x 0.2 x ?? 0.1 cm. ??The specimens are submitted intact as (B). ??(J.D. Tessitore)/kmm ? End of Report ? [facility] 02/27/2009 02/27/2009 19: 58 EDT us Dion Olvera MD PATHOLOGY ORDERABLES Final Resul t [facility] [address] [place] [address] documented in this encounter Visit Diagnoses Not on filedocumented in this encounter
--- OUTSIDE RECORDS SUMMARY | 2024-05-10 15:05 | XMS_ITS | Referral Summary ---
Author Organization [facility] Address [address] [place] [address] Care Team Providers Care Chief Deputy Sheriff Name Role Phone Pedro Pablo Escoto MD Primary Care Provider [phone] Social History Tobacco Use Types Packs/Day Years Used Date Smoking Tobacco: Never Assessed Interpersonal Safety Answer Date Record ed Physically Hurt Never 12/03/2019 Verbally Threaten Not on file 12/03/2019 Comments Unknown Sex and Gender Information Value Date Recorded Sex Assigned at Not on file Legal Sex Female 18:42 EST Gender Identity Not on file Sexual Orientation Not on file Plan of Treatment Not on file Procedures Procedure Name Priority Date/Time Associated Diagnosis Comments HEPATITIS C AB W REFLEX TO HCV RNA BY PCR Routine 05/13/2021 8:10 EST from Last 3 Months or Most Recently Relevant to Health Maintenance Results * HEPATITIS C AB W REFLEX TO HCV RNA BY PCR (05/13/2021 8:10 EST) Hep C Antibody Negative Negative 05/14/2021 11:07 EST [facility] Blood VENOUS BLOOD / Unknown 05/13/2021 8:10 EST 05/13/2021 21:01 EST us Provider Outr Resulting Lab CHEMISTRY & BLOOD GA S ORDERABLES Final Result [facility] [address] [place] [address] from Last 3 Months or Most Recently Relevant to Health Maintenance Care Teams Chief Deputy Sheriff Relationship Specialty Start Date End Date Pedro Pablo Escoto MD [address] [place] [address] [facility] - General 03/07/19
--- OUTSIDE RECORDS SUMMARY | 2024-05-10 15:05 | XMS_ITS | Clinical Summary ---
Author Organization [facility] [place] [address] Care Team Providers Care Fruit Or Nut Farm Worker Name Role Phone Keshawn Taylor MD Primary Care Provider [phone] Social History Tobacco Use Types Packs/Day Years Used Date Smoking Tobacco: Never Assessed Sex and Gender Information Value Date Recorded Sex Assigned at Not on file Gender Identity Not on file Sexual Orientation Not on file Plan of Treatment Health Maintenance Due Date Last Done Comments CT Colonography 1960 Colonoscopy 1960 Colorectal Cancer Screening 1960 FIT DNA 1960 FIT 1960 Sigmoidoscopy (10 year) with FIT yearly 1960 Sigmoidoscopy 1960 Hepatitis C Screening 1976 Tetanus/Diphtheria/Pertussis Vaccines (1 - Tdap) 1977 Breast Cancer Share Decision Needed 1998 Breast Cancer screening 1998 Pneumoccocal Vaccine: 65+ (1 of 1 - PCV) 2008 Zoster vaccine (1 of 2) 2008 Advance Directive 2013 Bone Density Scan 2023 Covid-19 Vaccine (1 - 2023-2 5 season) 2024 Influenza (Flu) vaccine (1 o f 1 - Influenza standard series) 01/02/2024 PAP Smear 08/16/2025 08/16/2020, 02/10/2018, 05/25/2017, Additional history exists HPV test 08/22/2025 08/22/2020 Procedures Procedure Name Priority Date/Time Associated Diagnosis Comments HPV Routine 08/22/2020 4:02 PM EDT WINDER HAND CYTOLOGY FINAL REPORT Routine 08/16/2020 4:02 PM EDT from Last 3 Months or Most Recently Relevant to Health Maintenance Results * HPV (08/22/2020 4:02 PM EDT) HPV16 NEGATIVE NEGATIVE [facility] HPV 18 NEGATIVE NEGATIVE [facility] HPV Other HR NEGATIVE NEGATIVE [facility] HPV Interpretation See Comment [facility] Comment: NEGATIVE for high-risk HPV *. * Testing negative for high risk HPV means that the specimen is negative for the following 14 types tested: ??types 16, 18, 31, 33, 35, 39, 45, 51, 52, 56, 58, 59, 66, and 68. ??The test is not intended to detect low risk HPV types. Yanci Cm HPV test Specimen: HPV Testing - Cytology Liquid Based Prep Cervical swab (specimen) 08/22/2020 4:02 PM EDT 08/23/2020 12:18 AM EDT Narrative Resulting Agency Comment Spec In Lab / [facility] Dahiana aSucedo APRN PATHOLOGY/CYTOLO GY ORDERABLES [facility] [place] [address] * Metal Smelter Cytology Final Report (08/16/2020 4:02 PM EDT) Metal Smelter Cytology Final Report [id number] ? Location: [facility] The signing pathologist has (i) examined the relevant preparation(s) for the specimen(s) and (ii) rendered or confirmed the diagnosis(es). . ? Metal Smelter Final DIAGNOSIS Normal Negative for intraepithelial lesion or malignancy (NILM). For consensus guidelines for the management of cervical cancer screening test results, please see: ?? http://www.asccp.o rg . Electronically signed by: ?Angel FERRELL(ASCP)Ghazaal Verified: ??09/03/2020 12:27 ??Satellite Dish Technician Performed at: ??-[facility] Dept. of Pathology, [facility] [place], [place] DISCUSSION Atrophic pattern sample. HPV RESULTS HPV16 (Result) ?Negative HPV18 (Result) ?Negative HPVOHR (Result) ? Negative HPV (Interpretation) ?See Below HPV (Interpretation) Text: NEGATIVE for high-risk HPV *. *Testing negative for high risk HPV means that the specimen is negative for the following 14 types tested: types 16, 18, 31, 33, 35, 39, 45, 51, 52, 56, 58, 59, 66, and 68. The test is not intended to detect low risk HPV types. Yanci cm HPV test Specimen: HPV Testing - Cytology Liquid Based Prep The Yanci cm ? HPV test was validated, performed and results reported through the Laboratory for Clinical Genomics and Advanced Technology (CGAT) at [facility]. ? - Teja Aguilar, PhD, [facility], Director-[facility] STATEMENT OF ADEQUACY Specimen submitted is satisfactory. Endocervical component present. CLINICAL INFORMATION HPV Option: ? Concurrent HPV CT/NG Option: ? No Preparation: ?Liquid Based Pap Specimen Source: ?Cervical Endocervical LBP LMP: ?(not provided) Hysterectomy?: ?No ?: ?No ?: ?No I.U.D.?: ?No Pelvic Radiation: ? No Hist Abnl Pap/Biopsy?: ??No Prior WINDER HAND Therapy?: ? No Hist of HPV Vaccine?: ?? No ICD Diagnosis: ?Z12.4 Encounter for screening for malignant neoplasm of cervix . CLINICAL INFORMATION Clinical Data, Significant Therapy and Clinical Impression ?? : ?? _ This Pap Test has been evaluated with the assistance of the Extra LifePrep Pap Test Imaging System. Note: The Pap test is a screening test for cervical cancer with an inherent false-negative rate dependent upon several variables. For further information please contact the [facility] Laboratory. Reference: Khloe GARCIA. Warranty Clerk of Pap Smear Results. In: Halle BS, Ernesto HH, ed. ??The Pap Smear. [place]: El, 2002: 71-77. [facility] 08/16/2020 4:02 PM EDT Narrative Resulting Agency Comment Spec In Lab / WKS Dahiana Saucedo APRN PATHOLOGY/CYTOLO GY ORDERABLES [facility] [place] [address] from Last 3 Months or Most Recently Relevant to Health Maintenance Care Teams Fruit Or Nut Farm Worker Relationship Specialty Start Date End Date Keshawn Taylor MD [address] [place], [place] [id number] PCP - General Family Medicine 11/11/23
--- OUTSIDE RECORDS SUMMARY | 2024-05-10 15:05 | XMS_ITS | Encounter Summary ---
Author Organization [facility] Address [facility] [place] [address] Care Team Providers Care Mill Washer Name Role Phone Becky Carrizales MD Primary Care Provider [phone] Encounter Details Date Type Department Care Team (Latest Contact Info) Description 11/10/2023 9:59 PM EDT - 11/10/2023 11:59 PM EDT Hospital [place] [address] Discharge Disposition: Home Social History Tobacco Use Types Packs/Day Years Used Date Smoking Tobacco: Never Assessed Sex and Gender Information Value Date Recorded Sex Assigned at Not on file Gender Identity Not on file Sexual Orientation Not on file documented as of this encounter Plan of Treatment Not on file documented as of this encounter Procedures Procedure Name Priority Date/Time Associated Diagnosis Comments SURGICAL PATHOLOGY REPORT Routine 11/10/2023 9:09 AM EDT documented in this encounter Results * Surgical Pathology Report (11/10/2023 9:09 AM EDT) Final Diagnosis [id number] ? Location: [facility] The signing pathologist has (i) examined the relevant preparation(s) for the specimen(s) and (ii) rendered or confirmed the diagnosis(es). . ?Surgical Pathology DIAGNOSIS Benign endocervical polyp. CR-0 Electronically signed by: ?Mike POSADAS, Yousuf Mendoza Verified: ??11/16/2023 15:00 ??Pathologist Performed at: ??-[facility] Dept. of Pathology, [place] [address] Dried Fruit Washer: Diane Matthews MD, AP, ??CLIA Certificate: [id number] SPECIMEN(S) SUBMITTED A - Cervical polyp Referring Identifier: ??[id number] CLINICAL INFORMATION Polyp SPECIMEN PROCESSING A - Labeled/Fixative : Patient demographics, formalin. Quantity/Size: Single, 1.2 x 1.0 x 0.2 cm. Tissue Description: Intact pedunculated pink-red polyp. Sections/Process ing: Trisected and entirely submitted in 1 cassette labeled A1. sns 11/16/2023 3:00 PM EDT [facility] SPECIMEN FROM CERVIX OR VAGINA / Unknown 11/10/2023 9:09 AM EDT 11/10/2023 9:09 AM EDT Narrative Resulting Agency Comment Spec In Lab / WKS Dahiana Saucedo PLANT MACHINIST PATHOLOGY/CYTOLO GY ORDERABLES [facility] [place] [phone] documented in this encounter Visit Diagnoses Not on filedocumented in this encounter Care Teams Mill Washer Relationship Specialty Start Date End Date Becky Carrizales MD [address] [place] [address] PCP - General 03/25/10 11/10/23 documented as of this encounter
--- OUTSIDE RECORDS SUMMARY | 2024-05-10 15:05 | XMS_ITS | Encounter Summary ---
Author Organization [facility] [place] [address] Care Team Providers Care Core Mounter Name Role Phone Becky Carrizales MD Primary Care Provider [phone] Encounter Details Date Type Department Care Team (Latest Contact Info) Description 06/28/2018 9:46 PM EST - 06/28/2018 11:59 PM EST Hospital [place] [id number] Discharge Disposition: Home Social History Tobacco Use Types Packs/Day Years Used Date Smoking Tobacco: Never Assessed Sex and Gender Information Value Date Recorded Sex Assigned at Not on file Gender Identity Not on file Sexual Orientation Not on file documented as of this encounter Plan of Treatment Not on file documented as of this encounter Procedures Procedure Name Priority Date/Time Associated Diagnosis Comments CONTINUOUS MINING MACHINE LODE MINER CYTOLOGY INTERPRETATION Routine 06/28/2018 11:00 AM EST CONTINUOUS MINING MACHINE LODE MINER CYTOLOGY FINAL REPORT Routine 06/28/2018 11:00 AM EST documented in this encounter Results * Lot Attendant Cytology Final Report (06/28/2018 11:00 AM EST) Lot Attendant Cytology Final Report [id number] ? Location: [facility] The signing pathologist has (i) examined the relevant preparation(s) for the specimen(s) and (ii) rendered or confirmed the diagnosis(es). . ? Lot Attendant Final DIAGNOSIS Normal Negative for intraepithelial lesion or malignancy (NILM). For consensus guidelines for the management of cervical cancer screening test results, please see: ?? http://www.asccp.o rg . Electronically signed by: ??Tori FRERELL(ASCP)Abby Verified: ??07/11/2018 ?Hair Or Beauty Salon Manager Performed at: ??-[facility] Dept. of [place]ology, [facility] [place] DISCUSSION Atrophic pattern sample. HPV RESULTS Not applicable (HPV testing either not indicated or not requested by clinician). STATEMENT OF ADEQUACY Specimen submitted is satisfactory. Endocervical component present. CLINICAL INFORMATION HPV Option: ? Reflex HPV CT/NG Option: ??(not provided) Preparation: ?Liquid Based Pap Specimen Source: ?Endocervical/LBP LMP: ?Postmenopausal Hormones?: ?No Hysterectomy?: ?No ?: ?No ?: ?No I.U.D.?: ?No Pelvic Radiation: ? No Prior CONTINUOUS MINING MACHINE LODE MINER Therapy?: ? No Hist Abnl Pap/Biopsy?: ??No Hist of HPV Vaccine?: ?? No Hist of Smoking?: ? No Hist of CHRISTOPHER exposure?: ??No Clinical Data, Significant Therapy and Clinical Impression ?? : ?? _ Referring Identifier: ?(not provided) This Pap Test has been evaluated with the assistance of the [employer] Pap Test Imaging System. Note: The Pap test is a screening test for cervical cancer with an inherent false-negative rate dependent upon several variables. For further information please contact the [facility] Laboratory. Reference: Khloe GARCIA. Insurance Counsel of Pap Smear Results. In: Halle BS, Ernesto HH, ed. ??The Pap Smear. [place]: El, 2002: 71-77. [facility] 06/28/2018 11:0 0 AM EST Narrative Resulting Agency Comment Spec In Lab / WKS Edy Hernandez MD PATHOLOGY/CYTOLOGY O GLEN Performing Organization Address [facility] [place] [address] * CONTINUOUS MINING MACHINE LODE MINER Cytology Interpretation (06/28/2018 11:00 AM EST) Lot Attendant Cytology Interpretation [facility] Comment:Lot Attendant Cytology Final R eport Lot Attendant Cytology Comment Present [facility] Endocervical Component Present [facility] AP Specimen 06/28/2018 11:0 0 AM EST 07/11/2018 1:02 PM EDT Narrative Resulting Agency Comment Spec In Lab / WKS Edy Hernandez MD PATHOLOGY/CYTOLOGY O GLEN Performing Organization Address [facility] de Phone Number [place] [phone] documented in this encounter Visit Diagnoses Not on filedocumented in this encounter Care Teams Core Mounter Relationship Specialty Start Date End Date Becky Carrizales MD [address] [place] [address] PCP - General 03/25/10 11/10/23 documented as of this encounter
--- OUTSIDE RECORDS SUMMARY | 2024-05-10 15:05 | XMS_ITS | Encounter Summary ---
Author Organization [facility] Address [address] [place] [address] Care Team Providers Care Partition Assembly Machine Operator Name Role Phone Pedro Pablo Escoto MD Primary Care Provider [phone] Encounter Details Date Type Department Care Team (Late st Contact Info) Description 05/13/2021 Lab Requisition [facility] Pathology & Laboratory Medicine - [address] [phone] Outr Resulting Lab, Provider Social History Tobacco Use Types Packs/Day Years [...] RNA BY PCR Routine 05/13/2021 8:10 EST documented in this encounter Results * HEPATITIS C AB W REFLEX TO HCV RNA BY PCR (05/13/2021 8:10 EST) Hep C Antibody Negative Negative 05/14/2021 11:07 EST [facility] Blood VENOUS BLOOD / Unknown 05/13/2021 8:10 EST 05/13/2021 21:01 EST us Provider Outr Resulting Lab CHEMISTRY & BLOOD GA S ORDERABLES Final Result [facility] [address] [place] [address] documented in this encounter Visit Diagnoses Not on filedocumented in this encounter Care Teams Partition Assembly Machine Operator Relationship Specialty Start Date End Date Pedro Pablo Escoto MD [address] [place], [place] [phone] PCP - General 03/07/19 documented as of this encounter
--- OUTSIDE RECORDS SUMMARY | 2024-05-10 15:05 | XMS_ITS | Encounter Summary ---
Author Organization [facility] Address [address] [place] [address] Care Team Providers Care Hydroelectric Plant Electrical Engineer Name Role Phone Ashlyn Vines PA-C Primary Care Provider + Encounter Details Date Type Department Care Team (Late st Contact Info) Description 10/27/2007 Results Only [facility] - [employer] [facility] [address] [place] [address] Renata Stephen MD [address] [place] [id number] Social History Tobacco Use Types Packs/Day Years [...] Procedure Name Priority Date/Time Associated Diagnosis Comments CYTOPATHOLOGY Routine 10/27/2007 0:00 EDT documented in this encounter Results * CYTOPATHOLOGY (10/27/2007 0:00 EDT) Pathology Report: CYTOPATHOLOGY REPORT Reports generated via electronic interface contain original data; however they are lacking the format of the original report. Caution should be taken when reading/interpreti ng unformatted reports. Name: ? EFFIE PAGE ? Accession #: ? [id number] : ? 1960 (Age: 47) ??F ?Collect Date: ? 10/27/2007 Location: ? [facility] ? Receive Date: ? 10/28/2007 Provider: ? RENATA STEPHEN MD Copy to: ?FRANDY FREDERICK MD ? CYTOLOGIC DIAGNOSIS: B. [id number], 2 o'clock, zone 2: ? - ??Ductal cells showing apocrine metaplasia ? C. [id number], 12 o'clock, zone 2: ? - ??Cyst contents and apocrine metaplasia ? D. [id number], 2 o'clock, zone 3: ? - ??Cyst contents and apocrine metaplasia ? E. [id number], 3 o'clock, zone 3: ? - ??Cyst contents and apocrine metaplasia. ? F. [id number], 10 o'clock, zone 3: ? - ??Cyst contents and rare apocrine metaplastic cells. ? G. [id number], 12 o'clock, zone 2: ? - ??Benign ductal cells, apocrine metaplasia and cyst contents ? H. [id number], 9 o'clock, zone 2: ? - ??Benign duct cells, apocrine metaplasia and cyst contents ? I. [id number], retroareolar fluid: ? - ??Benign degenerate ductal cells, apocrine metaplasia and cyst contents ? J. [id number], 2 o'clock, zone 1: ? - ??Rare benign duct cells and abundant foam cells. ? K. [id number], 4 o'clock, zone 2: ? - ??Cyst contents ? COMMENT: ? All the specimens are fluid samples received from the LEFT breast. ??All show evidence of benign fibrocystic change. ??There is NO evidence of malignancy in any of the samples studied. ??(Dr. Fowler)/[facility] Document reviewed and electronically signed by: ? PORFIRIO FOWLER MD [facility] Report Date: ??10/31/2007 15:18 By the signature above, the attending physician certifies that he/she has personally conducted a gross and/or microscopic examination of the described specimens and rendered or confirmed the above diagnosis. Specimen Type: ? A: Breast, Fine Needle Aspiration, Labelled B Left breast 2 oclock position Zone 2 B: Breast, Fine Needle Aspiration, Labelled C Left breast ??12 oclock position Zone 2 C: Breast, Fine Needle Aspiration, Labelled D Left breast 2 oclock ? (More) Clinical History: ? Pre-op diagnosis: ??Fibroadenoma left upper outer breast. ??Post-op diagnosis: Multiple cystic masses. ? Gross Description: ? Ten vials of Cytolyt were received and processed by selective cellular enhancement technique. ? End of Report [facility] 10/27/2007 10/28/2007 9:0 3 EDT us Renata Stephen MD PATHOLOGY ORDERABLES Final Resul t [facility] [address] [place] [address] documented in this encounter Visit Diagnoses Not on filedocumented in this encounter Care Teams Hydroelectric Plant Electrical Engineer Relationship Specialty Start Date End Date Ashlyn Vines PA-C [address] [place] [address] PCP - General 03/01/09 08/08/12 documented as of this encounter
--- OUTSIDE RECORDS SUMMARY | 2024-05-10 15:05 | XMS_ITS | Encounter Summary ---
Author Organization [facility] Address [facility] [place] [address] Care Team Providers Care Industrial Machine System Technician Name Role Phone Becky Carrizales MD Primary Care Provider [phone] Encounter Details Date Type Department Care Team (Latest Contact Info) Description 08/16/2020 9:50 PM EDT - 08/16/2020 11:59 PM EDT [place] [address] Discharge Disposition: Home Social History Tobacco Use [...] Comments HPV Routine 08/22/2020 4:02 PM EDT CLIENT CARE MANAGER CYTOLOGY INTERPRETATION Routine 08/16/2020 4:02 PM EDT CLIENT CARE MANAGER CYTOLOGY FINAL REPORT Routine 08/16/2020 4:02 PM EDT documented in this encounter Results * HPV (08/22/2020 4:02 PM EDT) HPV16 NEGATIVE NEGATIVE [facility] HPV 18 NEGATIVE NEGATIVE [facility] HPV Other HR NEGATIVE NEGATIVE [facility] HPV Interpretation See Comment [facility] Comment: NEGATIVE for high-risk HPV *. [...] WKS Dahiana Saucedo APRN PATHOLOGY/CYTOLO GY ORDERABLES Performing Organization Address [facility] [place] [address] * CLIENT CARE MANAGER Cytology Interpretation (08/16/2020 4:02 PM EDT) Chef De Cuisine Cytology Interpretation [facility] Comment:Chef De Cuisine Cytology Final R eport Chef De Cuisine Cytology Comment Present [facility] Endocervical Component Present [facility] AP Specimen 08/16/2020 4:02 PM EDT 09/03/2020 12:27 PM EDT Narrative Resulting Agency Comment Spec In Lab / W[facility] Dahiana Saucedo APRN PATHOLOGY/CYTOLO GY ORDERABLES Performing Organization Address [facility] Co de Phone Number [facility] [place] [address] * Chef De Cuisine Cytology Final Report (08/16/2020 4:02 PM EDT) Chef De Cuisine Cytology Final Report [id number] ? Location: [facility] The signing pathologist has (i) examined the relevant preparation(s) for the specimen(s) and (ii) rendered or confirmed the diagnosis(es). . ? Chef De Cuisine Final DIAGNOSIS Normal Negative for intraepithelial lesion or malignancy (NILM). For consensus guidelines for the management of cervical cancer screening test results, please see: ?? http://www.asccp.o rg . Electronically signed by: ?Angel CT(ASCP), Ghazala E Verified: ??09/03/2020 12:27 ??Guard Sergeant Performed at: ??-[facility] Dept. of Pathology, [facility] [place], [place] DISCUSSION Atrophic pattern sample. HPV RESULTS HPV16 [...] Clinical Genomics and Advanced Technology (CGAT) at [facility]. ? - Teja Aguilar, PhD, [facility], Director-[facility] STATEMENT OF ADEQUACY Specimen submitted is satisfactory. Endocervical component present. CLINICAL INFORMATION HPV Option: ? Concurrent HPV CT/NG Option: ? No Preparation: ?Liquid Based Pap Specimen Source: ?Cervical Endocervical LBP LMP: ?(not provided) Hysterectomy?: ?No ?: ?No ?: ?No I.U.D.?: ?No Pelvic Radiation: ? No Hist Abnl Pap/Biopsy?: ??No Prior CLIENT CARE MANAGER Therapy?: ? No Hist of HPV Vaccine?: ?? No ICD Diagnosis: ?Z12.4 Encounter for screening for malignant neoplasm of cervix . CLINICAL INFORMATION Clinical Data, Significant Therapy and Clinical Impression ?? : ?? _ This Pap Test has been evaluated with the assistance of the [employer] Pap Test Imaging System. Note: The Pap test is a screening test for cervical cancer with an inherent false-negative rate dependent upon several variables. For further information please contact the [facility] Laboratory. Reference: Khloe GARCIA. Mac Developer of Pap Smear Results. In: Halle BS, Ernesto HH, ed. ??The Pap Smear. [place]: El, 2002: 71-77. [facility] 08/16/2020 4:02 PM EDT Narrative Resulting Agency Comment Spec In Lab / WKS Dahiana Saucedo APRN PATHOLOGY/CYTOLO GY ORDERABLES [facility] [place] [address] documented in this encounter Visit Diagnoses Not on filedocumented in this encounter Care Teams Industrial Machine System Technician Relationship Specialty Start Date End Date Becky Carrizales MD [address] [place] [address] PCP - General 03/25/10 11/10/23 documented as of this encounter
--- OUTSIDE RECORDS SUMMARY | 2024-05-10 15:05 | XMS_ITS | Patient Health Record ---
Author Organization [facility] Address [address] [place] [address] Care Team Providers Care Torpedo Shooter Name Role Phone FRANDY FREDERICK MD Primary Care Provider Unavail able Edy Abdi Unavailable [phone] ALLERGIES Allergen (clinical drug ingredient) Drug/Non Drug [...] Status Risk SNOMED Code Notes Problem ROUTINE LUMBER KILN OPERATOR EXAMINATION (V72.31) Active confirmed Routine gynecologic examination done (43582633989570 ) Problem BREAST MASS (611.72) Active confirmed Breast mass (00447797) Problem Atrophic vaginitis (N95.2) Active confirmed [id number] PLAN OF TREATMENT Future Test Test Name Order Date HEMOGLOBIN A1C 06/28/2018 LIPID W/ CALCULATED LDL 06/28/2018 TSH 06/28/2018 Insurance Providers Payer Name Payer Address Payer Phone Subscriber Number Group Number Insured Name Patient Relationship to Insured Coverage Start Date Coverage End Date [employer] [place] [address] [place], [place] [id number] [place] [id number] Self - patient is the insured SELF PAY AFTER [place] [address] JUDITH PAGE Self - patient is the insured MEDICAL (GENERAL) HISTORY Medical History History ICD Code mother diagnosised with breast cancer 52 yrs old. Surgical History Surgery Date(Month/Year) breast sugery- dr. Bailey 10/2007 breast surgery- Dr. Mahoney in [place]. 10/2008 T&A colonoscopy 02/21/2010 breast cyst aspiration colonoscopy with flat polyp, repeat in [place] yr.Dr. Wyman. 08/08/2012 Colonoscopy at [facility] 2013, 2018 Hospitalization History Reason Date(Month/Year) childbirth
--- OUTSIDE RECORDS SUMMARY | 2024-05-10 15:05 | XMS_ITS | Encounter Summary ---
Author Organization [facility] Address [address] [place] [address] Care Team Providers Care Warp Tester Name Role Phone Pedro Pablo Escoto MD Primary Care Provider [phone] Encounter Details Date Type Department Care Team (Late st Contact Info) Description 05/13/2021 Lab Requisition [facility] Pathology & Laboratory Medicine - [address] [phone] Outr Resulting Lab, Provider Social History Tobacco [...] Procedure Name Priority Date/Time Associated Diagnosis Comments HIV 1/2 ANTIGEN AND ANTIBODY, 4TH GENERATION Routine 05/13/2021 8:10 EST documented in this encounter Results * HIV 1/2 ANTIGEN AND ANTIBODY, 4TH GENERATION (05/13/2021 8:10 EST) HIV 1 and 2 Antibody/p24 Antigen, 4th Generation Negative Negative 05/14/2021 12:38 EST [facility] Comment:If acute HIV-1 infec tion is suspected in a high risk patient, submit plasma specimen for HIV-1 RNA quantitation test. Blood VENOUS BLOOD / Unknown 05/13/2021 8:10 EST 05/13/2021 21:01 EST Narrative [facility] - 05/14/2021 12:38 EST Fourth Generation assay performed on the Siemens [email or web address] Applicationaur XPT. us Provider Outr Resulting Lab IMMUNOLOGY AND SEROL OGY ORDERABLES Final Result [facility] [address] [place] [address] documented in this encounter Visit Diagnoses Not on filedocumented in this encounter Care Teams Warp Tester Relationship Specialty Start Date End Date Pedro Pablo Escoto MD [address] [place], [place] [phone] PCP - General 03/07/19 documented as of this encounter
--- OUTSIDE RECORDS SUMMARY | 2024-05-10 15:05 | XMS_ITS | Encounter Summary ---
Author Organization [facility] [place] [address] Care Team Providers Care Spooler Operator Name Role Phone Becky Carrizales MD Primary Care Provider [phone] Encounter Details Date Type Department Care Team (Latest Contact Info) Description 05/25/2017 9:51 PM EST - 05/25/2017 11:59 PM EST Hospital [place] [id number] Discharge Disposition: Home Social History Tobacco Use Types Packs/Day Years Used Date Smoking Tobacco: Never Assessed Sex and Gender Information Value Date Recorded Sex Assigned at Not on file Gender Identity Not on file Sexual Orientation Not on file documented as of this encounter Plan of Treatment Not on file documented as of this encounter Procedures Procedure Name Priority Date/Time Associated Diagnosis Comments SURVEY TECHNICIAN CYTOLOGY INTERPRETATION Routine 05/25/2017 12:00 PM EST SURVEY TECHNICIAN CYTOLOGY FINAL REPORT Routine 05/25/2017 12:00 PM EST documented in this encounter Results * Shrimp Packer Cytology Final Report (05/25/2017 12:00 PM EST) Shrimp Packer Cytology Final Report [id number] ? Location: [facility] The signing pathologist has (i) examined the relevant preparation(s) for the specimen(s) and (ii) rendered or confirmed the diagnosis(es). . ? Shrimp Packer Final DIAGNOSIS Normal Negative for Intraepithelial Lesion or Malignancy (NILM). For consensus guidelines for the management of cervical cancer screening test results, please see: ?? [email or web address].asccp.o rg . Electronically signed by: ??Kodak FERRELL(ASCP)KimMarsha Verified: ??06/04/2017 ?County Agent Performed at: ??-[facility] Dept. of Pathology, [place], [place] DISCUSSION Atrophic pattern sample. HPV RESULTS Not applicable (HPV testing either not indicated or not requested by clinician). STATEMENT OF ADEQUACY Specimen submitted is satisfactory. Endocervical component present. CLINICAL INFORMATION HPV Option: ? Reflex HPV Preparation: ?Liquid Based Pap Specimen Source: ?Cervical Endocervical LBP LMP: ?DIRECTOR OF CUSTOMER SERVICE Hormones?: ?No Hysterectomy?: ?No ?: ?No ?: ?No I.U.D.?: ?No Pelvic Radiation: ? No Prior SURVEY TECHNICIAN Therapy?: ? No Hist Abnl Pap/Biopsy?: ??No Hist of HPV Vaccine?: ?? No Hist of Smoking?: ? No Hist of CHRISTOPHER exposure?: ??No Clinical Data, Significant Therapy and Clinical Impression ?? : ?? _ Referring Identifier: ?(not provided) This Pap Test has been evaluated with the assistance of the SaiseiPrep Pap Test Imaging System. Note: The Pap test is a screening test for cervical cancer with an inherent false-negative rate dependent upon several variables. For further information please contact the [facility] Laboratory. Reference: Khloe GARCIA. Beef Farmer of Pap Smear Results. In: Halle BS, Ernesto HH, ed. ??The Pap Smear. [facility]: El, 2002: 71-77. [facility] 05/25/2017 12:0 0 PM EST Narrative Resulting Agency Comment Spec In Lab / [facility] Edy Hernandez MD PATHOLOGY/CYTOLOGY O GLEN Performing Organization Address City/[facility]/[place] [address] * SURVEY TECHNICIAN Cytology Interpretation (05/25/2017 12:00 PM EST) Shrimp Packer Cytology Interpretation [facility] Comment:Shrimp Packer Cytology Final R eport Shrimp Packer Cytology Comment Present [facility] Endocervical Component Present [facility] AP Specimen 05/25/2017 12:0 0 PM EST 06/04/2017 2:22 PM EST Narrative Resulting Agency Comment Spec In Lab / [facility] Edy Hernandez MD PATHOLOGY/CYTOLOGY O RDRADHA Performing Organization Address City/[facility]/[place] [address] documented in this encounter Visit Diagnoses Not on filedocumented in this encounter Care Teams Spooler Operator Relationship Specialty Start Date End Date Becky Carrizales MD [address] [place] [address] PCP - General 03/25/10 11/10/23 documented as of this encounter
--- OUTSIDE RECORDS SUMMARY | 2024-05-10 15:05 | XMS_ITS | Encounter Summary ---
Author Organization [facility] Address [address] [place] [address] Care Team Providers Care Truck Despatcher Name Role Phone Ashlyn Vines PA-C Primary Care Provider + Encounter Details Date Type Department Care Team (Late st Contact Info) Description 09/19/2007 Results Only [facility] [address] [place] [address] Renata Stephen MD [address] [place] [phone] Social History Tobacco Use Types Packs/Day Years [...] Priority Date/Time Associated Diagnosis Comments CYTOPATHOLOGY Routine 09/19/2007 0:00 EDT CYTOPATHOLOGY Routine 09/19/2007 0:00 EDT SURGICAL PATHOLOGY Routine 09/19/2007 0:00 EDT documented in this encounter Results * CYTOPATHOLOGY (09/19/2007 0:00 EDT) Pathology Report: CYTOPATHOLOGY REPORT Reports generated via electronic interface contain original data; however they are lacking the format of the original report. Caution should be taken when reading/interpreti ng unformatted reports. Name: ? EFFIE PAGE ? Accession #: ? [id number] : ? 1960 (Age: 47) ??F ?Collect Date: ? 09/19/2007 Location: ? [facility] ? Receive Date: ? 09/19/2007 Provider: ? RENATA STEPHEN MD Copy to: ?FRANDY FREDERICK MD ? CYTOLOGIC DIAGNOSIS: ? Breast, left, 3:00 Z1, fine needle aspiration: - Consistent with cyst contents. ??See comment. ? COMMENT: ? The specimen consists predominantly of foamy macrophages with scattered multinucleated giant cells and very rare bland epithelial cells present. ??The findings are consistent with a benign cyst and suggestive of a ruptured cyst duct. ??(Dr. Renteria)/[facility] Document reviewed and electronically signed by: ? RADHA RENTERIA MD Report Date: ??09/20/2007 20:45 By the signature above, the attending physician certifies that he/she has personally conducted a gross and/or microscopic examination of the described specimens and rendered or confirmed the above diagnosis. Specimen Type: ? Breast, Fine Needle Aspiration, Left 3:00 Z1 Clinical History: ? Multiple cystic/solid breast masses ? Gross Description: ? One vial of Cytolyt was received and processed by selective cellular enhancement technique. ? End of Report [facility] 09/19/2007 09/19/2007 15: 35 EDT us Renata Stephen MD PATHOLOGY ORDERABLES Final Resul t [facility] [address] [place] [address] * SURGICAL PATHOLOGY (09/19/2007 0:00 EDT) Pathology Report: SURGICAL PATHOLOGY REPORT Reports generated via electronic interface contain original data; however they are lacking the format of the original report. Caution should be taken when reading/interpreting unformatted reports. Name: ? EFFIE PAGE ? Accession #: ? [id number] ? : ? 1960 (Age: 47) ??F ? Collect Date: ? 09/19/2007 ? Location: ? [facility] ? Receive Date: ? 09/19/2007 ? Provider: RENATA STEPHEN MD Copy to: FRANDY FREDERICK MD ? Final Pathologic Diagnosis: ? Breast, right, 11 o'clock, needle core biopsy: 1. ?Fibrocystic changes including: See comment. ? - Sclerosing adenosis. - Cysts. - Increased interlobular fibrosis. ? 2. ?? Microcalcifications identified within benign ducts. Comment: ? The core biopsy shows mostly fibrosi admixed with benign ducts and rare cysts. The edge of the core biopsy shoes a rim of histiocytes and sclerosis. These findings may represent the edge of a cyst or changes secondary to cyst rupture. Clinical radiographic correlation is suggested. No evidence of malignancy is seen. Marketing Communications Manager sections of this case have been reviewed at intradepartmental consultation conference. (Dr. Brown). Document reviewed and electronically signed by: SOPHIA BROWN MD Report ??Date: 09/20/2007 15:46 By the signature above, the attending physician certifies that he/she has personally conducted a gross and/or microscopic examination of the described specimens and rendered or confirmed the above diagnosis. Specimen(s) Received: ? Core solid 11:00 Z1 Clinical History: ? Multicystic/solid breast masses Gross Description: ? Collected and placed in formalin on September 19, 2007 with same day processing labelled [place] and right 11:00 Z1 is a dumont-yellow to white 1.0 x 0.2 cm cylindrical soft tissue. ??The specimen is entirely submitted in one cassette. (Lali Del Rio)/mpl End of Report [facility] 09/19/2007 09/19/2007 15: 54 EDT us Renata Stephen MD PATHOLOGY ORDERABLES Final Resul t [facility] [address] [place] [address] * CYTOPATHOLOGY (09/19/2007 0:00 EDT) Pathology Report: CYTOPATHOLOGY REPORT Reports generated via electronic interface contain original data; however they are lacking the format of the original report. Caution should be taken when reading/interpreti ng unformatted reports. Name: ? EFFIE PAGE ? Accession #: ? [id number] : ? 1960 (Age: 47) ??F ?Collect Date: ? 09/19/2007 Location: ? [facility] ? Receive Date: ? 09/19/2007 Provider: ? RENATA STEPHEN MD Copy to: ?FRANDY FREDERICK MD ? CYTOLOGIC DIAGNOSIS: A. ?Breast, right, 10:00 Z1, fine needle aspiration: 1. ?Consistent with fibrocystic change. ??See comment. B. ?Breast, right, 11:00 Z1, fine needle aspiration: 1. ?Non-diagnostic specimen, acellular. ? C. ?? Breast, right, 12:00 Z1, fine needle aspiration: ? 1. ?? Consistent with benign cyst. ??See comment. ? COMMENT: ? The 10:00 biopsy shows a mixture of benign ductal cells, apocrine metaplastic cells and cystic debris including degenerated foam cells. ??This pattern is most consistent with fibrocystic change. ??The 11:00 biopsy is acellular and therefore non-diagnostic. ??The 12:00 biopsy is composed predominantly of foamy macrophages and occasional multinucleated giant cells with proteinaceous debris. ??This has a pattern suggestive of a ruptured duct cyst. ??Clinical correlation is recommended. ??(Dr. Renteria)/[facility] Document reviewed and electronically signed by: ? RADHA RENTERIA MD Report Date: ??09/20/2007 20:44 By the signature above, the attending physician certifies that he/she has personally conducted a gross and/or microscopic examination of the described specimens and rendered or confirmed the above diagnosis. Specimen Type: ? A: Breast, Fine Needle Aspiration, Right 10:00 Z1 B: Breast, Fine Needle Aspiration, Right 11:00 Z1 C: Breast, Fine Needle Aspiration, Right 12:00 Z1 Clinical History: ? Multiple solid/cystic breast masses ? Gross Description: ? Three vials of Cytolyt were received and processed by selective cellular enhancement technique. ? End of Report [facility] 09/19/2007 09/19/2007 15: 33 EDT us Renata Stephen MD PATHOLOGY ORDERABLES Final Resul t [facility] [address] [place] [address] documented in this encounter Visit Diagnoses Not on filedocumented in this encounter Care Teams Truck Despatcher Relationship Specialty Start Date End Date Ashlyn Vines PA-C [address] [place] [phone] PCP - General 03/01/09 08/08/12 documented as of this encounter
--- OUTSIDE RECORDS SUMMARY | 2024-05-10 15:05 | XMS_ITS | Clinical Summary ---
Author Organization [facility] Address [address] [place] [address] Care Team Providers Care Hog Pusher Name Role Phone Pedro Pablo Escoto MD Primary Care Provider [phone] Social History Tobacco Use Types Packs/Day Years [...] Health Maintenance Due Date Last Done Comments Fall Risk Screening 2023 COVID-19 Vaccine ( season) 2024 RSV Immunization ( o r 60+ Years) (1 - 1-dose 75+ series) 2033 Hepatitis C Screen Completed 05/13/2021 Procedures Procedure Name Priority Date/Time Associated Diagnosis Comments HEPATITIS C AB W REFLEX TO HCV RNA BY PCR Routine 05/13/2021 8:10 EST from Last 3 Months or Most Recently Relevant to Health Maintenance Results * HEPATITIS C AB W REFLEX TO HCV RNA BY PCR (05/13/2021 8:10 EST) Hep C Antibody Negative Negative 05/14/2021 11:07 EST [facility] Blood VENOUS BLOOD / Unknown 05/13/2021 8:10 EST 05/13/2021 21:01 EST us Provider Outr Resulting Lab CHEMISTRY & BLOOD GA S ORDERABLES Final Result [facility] [address] [place] [address] from Last 3 Months or Most Recently Relevant to Health Maintenance Care Teams Hog Pusher Relationship Specialty Start Date End Date Pedro Pablo Escoto MD [address] [place], [place] [phone] PCP - General 03/07/19
--- OUTSIDE RECORDS SUMMARY | 2024-05-10 15:05 | XMS_ITS | Encounter Summary ---
Author Organization [facility] Address [address] [place] [address] Care Team Providers Care El Teacher Name Role Phone Dion Olvera MD Primary Care Provider [phone] Encounter Details Date Type Department Care Team (Late st Contact Info) Description 02/18/2018 Results Only [facility] [phone] [address] [place] [address] [place] [phone] Social History Tobacco Use Types Packs/Day Years [...] Date/Time Associated Diagnosis Comments SURGICAL PATHOLOGY Routine 02/18/2018 16 :27 EDT documented in this encounter Results * SURGICAL PATHOLOGY (02/18/2018 16:27 EDT) Pathology Report: SURGICAL PATHOLOGY REPORT Reports generated via electronic interface contain original data; however they are lacking the format of the original report. Caution should be taken when reading/interpreti ng unformatted reports. Name: ? CAMILO EFFIE ? Accession #: ? [id number] ? : ? 1960 (Age: 57) ??F ? Collect Date: ? 02/18/2018 ? Location: ? [facility] ? Receive Date: ? 02/21/2018 ? Provider: JOÃO CHANG Copy to: FRANDY FREDERICK MD ? Final Pathologic Diagnosis: SKIN OF FACE, INFERIOR NASOLABIAL FOLD, SHAVE BIOPSY: - Verruciform keratosis with overlying parakeratosis. ??See microscopic. Microscopic Description: Sections reveal a superficial shave biopsy in which the epidermis is partially transected. ??Multiple levels are examined and fail to reveal the base of the biopsy. ??The epidermis which is available for review shows hypergranulosis and verruciform change. ??There is overlying parakeratosis and focal serum crust. The differential diagnosis would include a seborrheic keratosis and less likely an actinic keratosis. ??Clinical correlation is recommended. ??(Dr. Martino)/[facility] Document reviewed and electronically signed by: DAIANA MARTINO MD Report ??Date: 02/23/2018 11:47 By the signature above, the attending physician certifies that he/she has personally conducted a gross and/or microscopic examination of the described specimens and rendered or confirmed the above diagnosis. Specimen(s) Received: Shave biopsy Clinical History: Inferior nasal labial fold, please fax results to: [phone]; clinical diagnosis code: D49.2 Gross Description: ? Received in formalin labelled with proper patient identification (initials F, E) and inferior nasal labial fold is an ovoid translucent skin shave, 0.2 x 0.1 x less than 0.1 cm. Entirely submitted in 1. CHARLENE Campos (ASCP) 02/21/2018 4:42 PM End of Report [facility] 02/18/2018 16:2 7 EDT 02/21/2018 16:27 EDT us João CHANG PATHOLOGY ORDERABLES Final Result [facility] [address] [place] [address] documented in this encounter Visit Diagnoses Not on filedocumented in this encounter Care Teams El Teacher Relationship Specialty Start Date End Date Dion Olvera MD [address] [place] [id number] PCP - General 08/09/12 03/06/19 documented as of this encounter
--- OUTSIDE RECORDS SUMMARY | 2024-05-10 15:05 | XMS_ITS | Encounter Summary ---
Author Organization [facility] Address [address] [place] [address] Care Team Providers Care Insurance Agency Owner Name Role Phone Ashlyn Vines PA-C Primary Care Provider + Encounter Details Date Type Department Care Team (Late st Contact Info) Description 08/08/2012 Results Only [facility] ([facility]) [address] [place], [place] [address] [place] [address] [place] [phone] Social History Tobacco Use Types Packs/Day Years [...] Date/Time Associated Diagnosis Comments SURGICAL PATHOLOGY Routine 08/08/2012 22 :02 EDT documented in this encounter Results * SURGICAL PATHOLOGY (08/08/2012 22:02 EDT) Pathology Report: SURGICAL PATHOLOGY REPORT Reports generated via electronic interface contain original data; however they are lacking the format of the original report. Caution should be taken when reading/interpreti ng unformatted reports. Name: ? EFFIE PAGE ? Accession #: ? [id number] ? : ? 1960 (Age: 52) ??F ? Collect Date: ? 08/08/2012 ? Location: ? [facility] ? Receive Date: ? 08/08/2012 ? Provider: DION OLVERA MD Copy to: FRANDY FREDERICK MD ? Final Pathologic Diagnosis: A. ?Colon, cecum, polypectomy: 1. ?Fragments of sessile serrated adenoma. B. ?Colon, transverse, polypectomies: 1. ?Multiple fragments of sessile serrated adenoma. C. ?Colon, descending, polypectomy: 1. ?Sessile serrated adenoma. Document reviewed and electronically signed by: CHARLIE RUIZ MD Report ??Date: 08/10/2012 12:31 By the signature above, the attending physician certifies that he/she has personally conducted a gross and/or microscopic examination of the described specimens and rendered or confirmed the above diagnosis. Specimen(s) Received: A. ?Cecal polyp B. ? Transverse colon polyps C. ? Descending colon polyp Clinical History: ? H/O colon adenoma; F/H colon cancer; A. ? SSA; B. ? SSA x3 Gross Description: ? Received in formalin labelled Effie Page and #1 cecal polyp, ? SSA are two light dumont polypoid structures measuring 0.7 x 0.5 x 0.3 cm and 1.2 x 0.6 x 0.3 cm. ??Also present are multiple smaller fragments of light dumont tissue measuring 1.5 x 0.4 x 0.2 cm in aggregate. ??The two polyps are inked, sectioned and submitted entirely as (A1). ??The smaller tissue fragments are submitted intact as (A2). ?? Received in formalin labelled Effie Page and #2 transverse colon polyps x3, ? SSA is a 1.5 x 0.7 x 0.4 cm dumont-brown lobulated polyp and multiple smaller fragments of tissue measuring 0.8 x 0.4 x 0.2 cm in aggregate. ??The smaller tissue fragments are submitted intact as (B1). ??The polyp is inked, sectioned and submitted entirely as (B2) and (B3). Received in formalin labelled Effie Page and #3 descending colon polyp is a 0.3 x 0.3 x 0.2 cm light dumont polypoid biopsy. ??The specimen is submitted intact as (C1). ??(RAMBO Cordon)/[facility]mg End of Report [facility] 08/08/2012 22:0 2 EDT 08/08/2012 22:02 EDT us Dion Olvera MD PATHOLOGY ORDERABLES Final Resul t [facility] [address] [place] [address] documented in this encounter Visit Diagnoses Not on filedocumented in this encounter Care Teams Insurance Agency Owner Relationship Specialty Start Date End Date Ashlyn Vines PA-C [address] [place] [phone] PCP - General 03/01/09 08/08/12 documented as of this encounter
--- OUTSIDE RECORDS SUMMARY | 2024-05-10 15:05 | XMS_ITS | Encounter Summary ---
Author Organization [facility] [place] [address] Care Team Providers Care Trace Evidence Technician Name Role Phone Becky Carrizales MD Primary Care Provider [phone] Encounter Details Date Type Department Care Team (Latest Contact Info) Description 09/07/2011 7:54 PM EDT - 09/07/2011 11:59 PM EDT Hospital [place] [address] Helen Zuniga MD [address] [place] [address] Discharge Disposition: Home Social History Tobacco Use Types Packs/Day Years Used Date Smoking Tobacco: Never Assessed Sex and Gender Information Value Date Recorded Sex Assigned at Not on file Gender Identity Not on file Sexual Orientation Not on file documented as of this encounter Plan of Treatment Not on file documented as of this encounter Procedures Procedure Name Priority Date/Time Associated Diagnosis Comments SOFT WATER MECHANIC CYTOLOGY FINAL REPORT Routine 09/07/2011 9:33 PM EDT documented in this encounter Results * SOFT WATER MECHANIC CYTOLOGY FINAL REPORT (09/07/2011 9:33 PM EDT) Composition Siding Worker Cytology Final Report ? [facility] ? Provider: ?? HELEN ZUNIGA ? Pt. Name: ?? EFFIE PAGE ? Acc #: ?[id number] ?Pt. ? Col Date: ?? 09/07/2011 ?/Sex: ?1960,(51 ? years),Female ? Rec Date: ?? 09/08/2011 ?LOC: ?[facility] ? CYTOPATHOLOGY: ??SOFT WATER MECHANIC ? ---Adequacy--- ? Specimen submitted is satisfactory for evaluation. ??No endocervical ? component present . ? Note: ??Initial cross-sectional studies suggested that ELIZABETH cells were more ? commonly identified when an endocervical component was present, however ? subsequent longitudinal studies fail to show that women lacking an ? endocervical component in a Pap smear are at increased risk for ELIZABETH. ? ---Cytopathologic Diagnosis--- ? NORMAL ? Negative for Intraepithelial Lesion or Malignancy (NILM). ? 09/16/11 ?? Screened by: ??LMY ? 09/16/11 ?? Verified by: ??Jose FERRELL(ASCP), Mercedez Escalera - Stage Hand ? ---Comment--- ? Endocervical component not detected in an atrophic smear pattern. ? ---Clinical Information--- ? HPV Option: ? Reflex HPV ? Preparation: ?Liquid Based Pap ? Specimen Source: ?Cervical Endocervical LBP ? LMP: ?11/10 - Postmenopausal ? Hormones?: ?No ? Hysterectomy?: ?No ?: ?No ?: ?No ? I.U.D.?: ?No ? Pelvic Radiation: ? No ? Prior SOFT WATER MECHANIC Therapy?: ? No ? Hist Abnl Pap/Biopsy?: ??No ? Hist of HPV Vaccine?: ?? (not provided) ? Hist of Smoking?: ? (not provided) ? Hist of CHRISTOPHER exposure?: ??(not provided) ? Clinical Data, Significant Therapy and Clinical Impression: ?Referring Identifier: ??[id number] ? Note: ? The Pap test is a screening test for cervical cancer with an inherent ? false-negative rate dependent upon several variables. ??For further ? information please contact the [facility] [place] Laboratory. ? [facility] ? Provider: ?? HELEN ZUNIGA ? Pt. Name: ?? EFFIE PAGE ? Acc #: ?[id number] ?Pt. ? Col Date: ?? 09/07/2011 ?/Sex: ?1960,(51 ? years),Female ? Rec Date: ?? 09/08/2011 ?LOC: ?[facility] ? CYTOPATHOLOGY: ??SOFT WATER MECHANIC ? Reference: ??Abendroth CS. ??Blacksmith Supervisor of Pap Smear Results. ??In: ? Halle BS, Ernesto HH, ed. ??The Pap Smear. ??[place]: ??El, 2002: ? 71-77. CERNER MILLENNIUM 09/07/2011 9:33 PM EDT Helen Zuniga MD PATHOLOGY/CYTOLOGY O RDERABLES LAMONTE SELBYIUM documented in this encounter Visit Diagnoses Not on filedocumented in this encounter Care Teams Trace Evidence Technician Relationship Specialty Start Date End Date Becky Carrizales MD [address] [place] [address] PCP - General 03/25/10 11/10/23 documented as of this encounter
--- OUTSIDE RECORDS SUMMARY | 2024-05-10 15:05 | XMS_ITS | Encounter Summary ---
Author Organization [facility] Address [address] [place] [id number] Care Team Providers Care Tin Flopper Name Role Phone Dion Olvera MD Primary Care Provider [phone] Encounter Details Date Type Department Care Team (Late st Contact Info) Description 03/06/2019 11:03 EST Hospital Encounter [address] [address] Unknown, Provider, Social History Tobacco Use Types Packs/Day Years [...] on filedocumented in this encounter Care Teams Tin Flopper Relationship Specialty Start Date End Date Dion Olvera MD [address] [place] [id number] PCP - General 08/09/12 03/06/19 documented as of this encounter
--- OUTSIDE RECORDS SUMMARY | 2024-05-10 15:05 | XMS_ITS | Encounter Summary ---
Author Organization [facility] [place] [address] Care Team Providers Care Professor Of Journalism Name Role Phone Becky Carrizales MD Primary Care Provider [phone] Encounter Details Date Type Department Care Team ([facility] st Contact Info) Description 10/16/2014 [place] [id number] Edy Hernandez MD [address] [place] [id number] Social History Tobacco Use Types Packs/Day Years Used Date Smoking Tobacco: Never Assessed Sex and Gender Information Value Date Recorded Sex Assigned at Not on file Gender Identity Not on file Sexual Orientation Not on file documented as of this encounter Plan of Treatment Not on file documented as of this encounter Procedures Procedure Name Priority Date/Time Associated Diagnosis Comments MILANESE KNITTING MACHINE OPERATOR CYTOLOGY INTERPRETATION Routine 10/16/2014 12:00 PM EDT documented in this encounter Results * MILANESE KNITTING MACHINE OPERATOR Cytology Interpretation (10/16/2014 12:00 PM EDT) Pecan Cleaner Cytology Interpretation [facility] Comment:Pecan Cleaner Cytology Final R eport Endocervical Component Present [facility] AP Specimen 10/16/2014 12:0 0 PM EDT 10/17/2014 7:28 PM EDT [facility]ative [facility] 10/31/2014 1:38 PM EDT Spec In Lab / [facility] Edy Hernandez MD PATHOLOGY/CYTOLOGY O GLEN Performing Organization Address City/State/[facility] Co de Phone Number [facility] documented in this encounter Visit Diagnoses Not on filedocumented in this encounter Care Teams Professor Of Journalism Relationship Specialty Start Date End Date Becky Carrizales MD [address] [place] [address] PCP - General 03/25/10 11/10/23 documented as of this encounter
[2024-05-10 15:32] LABS: HCT 41.2 % (36.0-46.0); HGB 13.7 g/dL (11.2-15.7); MCH 30.1 pg (27.0-33.0); MCHC 33.3 % (32.0-36.0); MCV 91 fL (80-95); MPV 10.2 fL (8.0-11.0); Platelet Count 300 10^3/uL (130-400); RBC 4.55 10^6/uL (3.93-5.22); RDW 12.8 % (11.7-14.6); RDW-SD 42.5 fL; WBC 5.67 10^3/uL (4.4-10.8)
[2024-05-10 15:49] LABS: ALT 22 U/L (14-59); AST 22 U/L (15-37); Albumin 4.2 g/dL (3.4-5.0); Alkaline Phosphatase 132 U/L (46-116); Anion Gap 8.7 mmol/L (3-11); BUN 23 mg/dL (7-18); Bilirubin, Total 0.57 mg/dL (0.2-1.0); CO2 29.3 mmol/L (21.0-32.0); Calcium 9.1 mg/dL (8.5-10.1); Calculated LDL 149 mg/dL (<100); Chloride 106 mmol/L (98-107); Cholesterol 224 mg/dL (<200); Estimated GFR 62.13 (mL/min/1.73m2); Glucose 85 mg/dL (74-106); HDL Cholesterol 62 mg/dL (40-60); Potassium 4.2 mmol/L (3.5-5.1); Sodium 144 mmol/L (136-145); TSH (W/Ref FT4) 2.09 uIU/mL (0.36-3.74); Total Protein 7.1 g/dL (6.4-8.2); Triglyceride 69 mg/dL (<150)
== END 2024-05-10 15:03 | disposition home or self-care (01) ==
LOC: NCHCN 15:02
PROVIDERS: PCP Nurse Practitioner Family; Visit Provider Nurse Practitioner Family
DX: Z00.00 Encounter for general adult medical examination without abnormal findings (principal); R61 Generalized hyperhidrosis
CPT/HCPCS: 80053; 80061; 85027; 84443

== ENCOUNTER 2024-08-11 00:10 | Outpatient (CLI) | payer BC, SELFPAY ==
--- NOTE | 2024-08-11 07:45 | DI.MAMMO_ITS ---
Exam(s) MAMMO SCREENING EXAM: MAMMO SCREENING CLINICAL HISTORY: Z12.39 Screening. TECHNIQUE: Bilateral full field digital CC and MLO mammographic images were obtained with 3D tomosyn thesis and utilizing computer aided detection (CAD). COMPARISON: 2020 through 2023 FINDINGS: Masses: None seen. Architectural Distortion: None seen. Microcalcifications: No suspicious pleomorphic-type are seen. Skin Thickening/Nipple Retraction: None. IMPRESSION: 1. No significant interval change with no specific features of malignancy noted. 2. Unless there is more urgent need, annual screening mammography is recommended, as per [place] [employer] guidelines. BI-RADS Category 1-negative Breast Density - Category D - extremely dense Breast Density Category D: The mammogram demonstrates the patient's breast tissue is dense. Dense blayne ast tissue is very common and is not abnormal but dense breast tissue can make it harder to find canc er on a mammogram. Also, dense breast tissue may increase their breast cancer risk. This information about the result of the mammogram report was provided to the patient to raise their awareness. Use th is report when you speak with the patient about their risks for breast cancer, which includes their f amily history. At that time, you may recommend for more screening tests (Ultrasound or MRI) as they m ight be useful based on their risk. A negative radiographic report should not delay biopsy if a dominant or clinically suspicious mass is present. Up to ten percent of cancers are not identified on mammography. A negative report may reinforce clinical impression. Adenosis and dense breasts may obscure an underlying neoplasm. False positive reports average 6 to 10%.
== END 2024-08-11 00:30 ==
LOC: DI 00:10
PROVIDERS: PCP Nurse Practitioner Family; Visit Provider Nurse Practitioner Family
DX: Z12.31 Encounter for screening mammogram for malignant neoplasm of breast (principal); R92.343 Mammographic extreme density, bilateral breasts
CPT/HCPCS: 77063; 77067

== ENCOUNTER 2024-11-09 01:13 | Outpatient (CLI) | payer BC, SELFPAY ==
--- NOTE | 2024-11-09 | DI.DEXA_ITS ---
Exam(s) XR DEXA BONE DENSITY W/WO JAZZY EXAM: XR DEXA BONE DENSITY W/WO JAZZY CLINICAL HISTORY: menopausal and female climacteric states N95.1 TECHNIQUE: [employer] Horizon C densitometer analysis of left hip, lumbar spine and left forearm. Lateral survey image of the thoracic and lumbar spine. COMPARISON: No exams were available for comparison FINDINGS: Lateral view of the thoracic and lumbar spine shows no evidence of compression fractures. Bone mineral density measurements of the lumbar spine correspond to a total T- score of -1.8, in the osteopenic range. Bone mineral density measurements of the left hip correspond to a total T-score of -1.8. The femoral neck T-score is -2.4, in the osteopenic range. Theleft forearm bone mineral density measurements correspond to a T-score of the distal 3rd of -2.8, in the osteoporotic range. IMPRESSION: Osteopenia of the spine and hip. Osteoporosis of the forearm.
== END 2024-11-09 01:33 ==
LOC: DI 01:13
PROVIDERS: PCP Nurse Practitioner Family; Visit Provider Nurse Practitioner Family
DX: Z00.01 Encounter for general adult medical examination with abnormal findings
CPT/HCPCS: 77080

== ENCOUNTER 2025-04-25 09:55 | Outpatient (REF) | payer BC, SELFPAY ==
[2025-04-25 16:03] LABS: HCT 36.9 % (36.0-46.0); HGB 12.0 g/dL (11.2-15.7); MCH 30.2 pg (27.0-33.0); MCHC 32.5 % (32.0-36.0); MCV 93 fL (80-95); MPV 10.2 fL (8.0-11.0); Platelet Count 253 10^3/uL (130-400); RBC 3.97 10^6/uL (3.93-5.22); RDW 13.2 % (11.7-14.6); RDW-SD 44.8 fL; WBC 5.48 10^3/uL (4.4-10.8)
[2025-04-25 16:21] LABS: ALT 16 U/L (10-49); AST 21 U/L (<34); Albumin 4.2 g/dL (3.2-5.0); Alkaline Phosphatase 110 U/L (46-116); Anion Gap 9.4 mmol/L (3-11); BUN 19 mg/dL (9-23); Bilirubin, Total 0.7 mg/dL (0.2-1.2); CO2 27.6 mmol/L (20.0-31.0); Calcium 8.7 mg/dL (8.3-10.6); Chloride 107 mmol/L (98-107); Cholesterol 182 mg/dL (<200); Glucose 81 mg/dL (74-106); HDL Cholesterol 52 mg/dL (>or=50); Potassium 4.2 mmol/L (3.5-5.1); Sodium 144 mmol/L (136-145); Total Protein 6.3 g/dL (5.7-8.2)
== END 2025-04-25 09:56 | disposition home or self-care (01) ==
LOC: NCHCN 09:55
PROVIDERS: PCP Nurse Practitioner Family; Visit Provider Nurse Practitioner Family
DX: Z00.00 Encounter for general adult medical examination without abnormal findings (principal)
CPT/HCPCS: 80053; 80061; 85027